=== PATIENT | female | born 1955 | race Caucasian/White ===

== ENCOUNTER → 2016-08-28 | Outpatient (REF) | payer MEDICAID ==
[~2016-08-28] MED LIST: /ADVA50050; /ADVA50050 IN; /ADVA50050 INH; /DULO30CA PO; /ESOM40CA OR; /INSUREG; /INSUREG SC; /MOM400 PO; /RANI15TA PO; /TIOT18INH; /TIOT18INH INH; ABIL10TA PO; ABIL15TA; ABIL15TA OR; ABILIFY15 PO; ACET500C PO; ACET50TA PO; ACET650S3 PR; ACET65TA OR; ACTO45TA; ACTO45TA OR; ACTOS45 PO; ADVAIR200 INHALATION; ALB2.5NEB INH; ALBU1.25 INH; ALBUTEROL INHALATION; ALCOHOL TOP; AMARYL4 PO; ASPEC81 PO; ASPI1TAB PO; ASPI81TA83 OR; ATROV NEBS; AUG875 PO; AUGM500T34 PO; AVANDIA4 PO; BABY81CH; BACL10TA2; BACL10TA2 OR; BACLOFEN10 PO; BACT800T OR; BENADRYL25 PO; BISA10SU PR; BUSPAR15 PO; CAPSAICIN TOP; CELE40TA; CELE40TA OR; CELEXA20 PO; CLOP75TA2 PO; COLA100C2 OR; COLA50CA3 PO; COLACE PO; DEPA500T; DEPA500T PO; DEPAKOT250 PO; DEPAKOT500 PO; DIABETA5 PO; DOXY100C PO; ENEMENE6 PR; ENOX40SY SC; FLEEENE4 PR; FURO40TA2 PO; GLUC1000; GLUC1000 OR; GLUCOSACCS; GLUCOSE TEST; GUAI5EL PO; HABITROL2 TOPICAL; HEPA100SYR IV; HUMA100I SC; IBUP800T OR; INSULANT SC; INSULINSYR SUBQ; IPRA2IN INH; LANCMIS; LANTUS SQ; LIDO5DIS TOP; LIPITOR20 PO; LORCET PO; LORTAB10 PO; LYRI75CA PO; MAALSUS PO; METF1000 PO; METFORM500 PO; MILK2400 PO; MILKSUS OR; MORP10SO OR; MORP15TASA PO; MOTRIN6 PO; MOTRIN800 PO; MS C15TA5 OR; MULTIVIT/MINERALS PO; MULTLIQ7 PO; NICO14DI3; NICO7DIS4; NYAM10003 EXT; NYSTATIN POWDER; NYSTATIN TOP; OXYCON20 PO; PAXIL40 PO; PERC5TAB PO; PERCOCET PO; PLAV75TA2; PLAV75TA2 OR; PRED1TAB32 PO; PROV90AE; PROVENTILI PO; RANI150C OR; SALI0.653; SENN8.6T5 PO; SEROQUE PO; SEROQUEL25 PO; SIMV40TA2 OR; SIMV40TA2 PO; SLF IV; SOMA350 PO; SOMA350T; SYRINS1CC SUBQ; TEFL600I IV; THERAGRAM PO; TOPAMAX100 PO; TOPAMAX200 PO; TOPI100T; TOPI100T OR; TOPI100T PO; TRAZ150T; TRAZ150T OR; TRAZODON10 PO; TRAZODON15 PO; TRICOR160 PO; TRICOR54 PO; TUSSLIQ3 PO; TYLE325T5 PO; VANC50SOL IV; VENTAER INH; VICO5TAB; VICO5TAB OR; VYTORIN40 PO; XANA0.25; XANA0.25 PO; XOPENEX63 NEB; ZANT150T; ZANTAC150 PO; ZOCO40TA; [UNRECOGNIZED DRUG - CODE] IV; [UNRECOGNIZED DRUG - CODE] PO; [UNRECOGNIZED DRUG - OTHER] TOP
[2016-08-28 09:34] LABS: BASO % 0.7 % (0.0-1.0); EOS # 0.6 K/mm3 (0.0-0.50); EOS % 7.9 % (0.0-3.0); LARGE UNSTAINED CELL # 0.2 K/mm3 (0.0-0.4); LARGE UNSTAINED CELL % 2.9 % (0.0-4.0); LYMPH # 2.4 K/mm3 (1.5-4.5); LYMPH % 30.5 % (24.0-44.0); MEAN CORPUSCULAR VOLUME 93.6 fl (80.0-96.0); MONO # 0.4 K/mm3 (0.0-0.8); NEUTROPHILS # 4.2 K/mm3 (1.8-7.7); PLATELET COUNT, AUTOMATED 220 k/mm3 (150-450); RED CELL DISTRIBUTION WIDTH 13.4 % (11.5-14.5); WHITE BLOOD COUNT 7.9 K/mm3 (4.0-10.0)
[2016-08-28 10:22] LABS: ALBUMIN 3.5 GM/DL (3.2-5.2); ALBUMIN/GLOBULIN RATIO 0.83 (1.00-1.93); ALKALINE PHOSPHATASE 115 U/L (45-117); ALT/SGPT 23 U/L (12-78); ANION GAP 12 MEQ/L (8-16); AST/SGOT 19 U/L (15-37); BILIRUBIN,TOTAL 0.5 MG/DL (0.2-1.0); BLOOD UREA NITROGEN 12 MG/DL (7-18); CARBON DIOXIDE LEVEL 26 MEQ/L (21-32); CHLORIDE LEVEL 98 MEQ/L (98-107); CHOLESTEROL LEVEL 146 MG/DL (<200); CREATININE FOR GFR 0.76 MG/DL (0.55-1.02); GLOMERULAR FILTRATION RATE > 60.0 (>45); GLUCOSE, FASTING 331 MG/DL (80-110); POTASSIUM SERUM 4.3 MEQ/L (3.5-5.1); SODIUM LEVEL 136 MEQ/L (136-145); TOTAL PROTEIN 7.7 GM/DL (6.4-8.2); TRIGLYCERIDES LEVEL 154 MG/DL (<150)
== END ==
LOC: SKLAB5 08:39
PROVIDERS: ATTEND Family Medicine
DX: R56.9 Unspecified convulsions (principal); E11.9 Type 2 diabetes mellitus without complications; D64.9 Anemia, unspecified

== ENCOUNTER → 2016-09-19 | Outpatient (REF) | payer MEDICAID | END | disposition home or self-care (01) | LOC: SKLAB5 12:49 | PROVIDERS: ATTEND Family Medicine | DX: L03.116 Cellulitis of left lower limb (principal) ==

== ENCOUNTER → 2016-11-25 | Outpatient (REF) | payer MEDICAID ==
[2016-11-25 08:16] LABS: BASO % 0.5 % (0.0-1.0); EOS # 0.2 K/mm3 (0.0-0.50); EOS % 2.5 % (0.0-3.0); LARGE UNSTAINED CELL # 0.2 K/mm3 (0.0-0.4); LARGE UNSTAINED CELL % 1.9 % (0.0-4.0); LYMPH # 3.5 K/mm3 (1.5-4.5); LYMPH % 38.7 % (24.0-44.0); MEAN CORPUSCULAR HGB CONC 31.4 g/dl (32.0-36.5); MEAN CORPUSCULAR VOLUME 92.4 fl (80.0-96.0); MONO # 0.4 K/mm3 (0.0-0.8); MONO % 4.8 % (0.0-5.0); NEUTROPHILS # 4.4 K/mm3 (1.8-7.7); NEUTROPHILS % 51.6 % (36.0-66.0); PLATELET COUNT, AUTOMATED 204 k/mm3 (150-450); WHITE BLOOD COUNT 8.5 K/mm3 (4.0-10.0)
[2016-11-25 08:43] LABS: ALBUMIN 3.4 GM/DL (3.2-5.2); ALBUMIN/GLOBULIN RATIO 0.83 (1.00-1.93); ALKALINE PHOSPHATASE 124 U/L (45-117); ALT/SGPT 27 U/L (12-78); ANION GAP 8 MEQ/L (8-16); AST/SGOT 14 U/L (15-37); BILIRUBIN,TOTAL 0.3 MG/DL (0.2-1.0); BLOOD UREA NITROGEN 15 MG/DL (7-18); CALCIUM LEVEL 8.7 MG/DL (8.8-10.2); CARBON DIOXIDE LEVEL 28 MEQ/L (21-32); CHLORIDE LEVEL 100 MEQ/L (98-107); CREATININE FOR GFR 0.81 MG/DL (0.55-1.02); GLOMERULAR FILTRATION RATE > 60.0 (>45); GLUCOSE, FASTING 380 MG/DL (80-110); SODIUM LEVEL 136 MEQ/L (136-145); TOTAL PROTEIN 7.5 GM/DL (6.4-8.2)
== END ==
LOC: SKLAB5 09:08
PROVIDERS: ATTEND Family Medicine
DX: L03.115 Cellulitis of right lower limb (principal); M54.42 Lumbago with sciatica, left side

== ENCOUNTER 2017-01-03 17:01 | Emergency (ER) | payer MEDICAID ==
[~2017-01-03] VITALS: Ht 167.6 cm; Wt 90.3 kg
[2017-01-03] MEDS ORDERED: BACL10TA2 PO (17:27)
[2017-01-03 18:40] LABS: MEAN CORPUSCULAR HEMOGLOBIN 28.6 pg (27.0-33.0); MEAN CORPUSCULAR HGB CONC 31.5 g/dl (32.0-36.5); MEAN CORPUSCULAR VOLUME 90.6 fl (80.0-96.0); RED CELL DISTRIBUTION WIDTH 14.2 % (11.5-14.5); WHITE BLOOD COUNT 9.4 K/mm3 (4.0-10.0)
[2017-01-03 19:01] LABS: ANION GAP 7 MEQ/L (8-16); BLOOD UREA NITROGEN 14 MG/DL (7-18); CALCIUM LEVEL 8.7 MG/DL (8.8-10.2); CARBON DIOXIDE LEVEL 28 MEQ/L (21-32); CHLORIDE LEVEL 101 MEQ/L (98-107); GLOMERULAR FILTRATION RATE > 60.0 (>45); GLUCOSE, FASTING 274 MG/DL (80-110); POTASSIUM SERUM 4.2 MEQ/L (3.5-5.1); SODIUM LEVEL 136 MEQ/L (136-145)
[2017-01-03 19:25] VITALS: BP 154/84
[2017-01-03 20:04] LABS: INR 0.87
== END 2017-01-03 19:59 | disposition home or self-care (01) ==
LOC: M ED 17:51
DX: R04.0 Epistaxis (principal); I51.9 Heart disease, unspecified; E11.9 Type 2 diabetes mellitus without complications; I10 Essential (primary) hypertension; Z79.82 Long term (current) use of aspirin; Z79.4 Long term (current) use of insulin; Z79.891 Long term (current) use of opiate analgesic; Z79.899 Other long term (current) drug therapy; Z88.1 Allergy status to other antibiotic agents

== ENCOUNTER → 2017-02-26 | Outpatient (REF) | payer MEDICAID ==
[~2017-02-26] MED LIST changes: +BACL10TA2 PO
[2017-02-26 09:34] LABS: BASO % 0.6 % (0.0-1.0); EOS # 0.2 K/mm3 (0.0-0.50); EOS % 2.9 % (0.0-3.0); LARGE UNSTAINED CELL # 0.2 K/mm3 (0.0-0.4); LARGE UNSTAINED CELL % 2.2 % (0.0-4.0); LYMPH # 2.6 K/mm3 (1.5-4.5); LYMPH % 31.6 % (24.0-44.0); MEAN CORPUSCULAR HEMOGLOBIN 29.7 pg (27.0-33.0); MEAN CORPUSCULAR HGB CONC 31.8 g/dl (32.0-36.5); MEAN CORPUSCULAR VOLUME 93.2 fl (80.0-96.0); MONO # 0.4 K/mm3 (0.0-0.8); MONO % 5.1 % (0.0-5.0); NEUTROPHILS # 4.7 K/mm3 (1.8-7.7); NEUTROPHILS % 57.6 % (36.0-66.0); PLATELET COUNT, AUTOMATED 202 k/mm3 (150-450); RED CELL DISTRIBUTION WIDTH 14.2 % (11.5-14.5); WHITE BLOOD COUNT 8.1 K/mm3 (4.0-10.0)
[2017-02-26 10:43] LABS: ALBUMIN 3.4 GM/DL (3.2-5.2); ALBUMIN/GLOBULIN RATIO 0.83 (1.00-1.93); ALKALINE PHOSPHATASE 114 U/L (45-117); ALT/SGPT 30 U/L (12-78); ANION GAP 10 MEQ/L (8-16); AST/SGOT 18 U/L (15-37); BILIRUBIN,TOTAL 0.3 MG/DL (0.2-1.0); BLOOD UREA NITROGEN 15 MG/DL (7-18); CALCIUM LEVEL 8.8 MG/DL (8.8-10.2); CARBON DIOXIDE LEVEL 26 MEQ/L (21-32); CHLORIDE LEVEL 98 MEQ/L (98-107); CHOLESTEROL LEVEL 146 MG/DL (<200); CREATININE FOR GFR 0.79 MG/DL (0.55-1.02); GLOMERULAR FILTRATION RATE > 60.0 (>45); GLUCOSE, FASTING 354 MG/DL (80-110); POTASSIUM SERUM 4.2 MEQ/L (3.5-5.1); SODIUM LEVEL 134 MEQ/L (136-145); TOTAL PROTEIN 7.5 GM/DL (6.4-8.2); TRIGLYCERIDES LEVEL 221 MG/DL (<150)
== END ==
LOC: SKLAB5 08:18
PROVIDERS: ATTEND Family Medicine
DX: E78.5 Hyperlipidemia, unspecified (principal); E11.9 Type 2 diabetes mellitus without complications; R56.9 Unspecified convulsions

== ENCOUNTER → 2017-03-19 | Outpatient (REF) | payer MEDICAID ==
[2017-03-19 13:32] LABS: BASO % 0.5 % (0.0-1.0); EOS # 0.2 K/mm3 (0.0-0.50); EOS % 2.1 % (0.0-3.0); LARGE UNSTAINED CELL # 0.2 K/mm3 (0.0-0.4); LARGE UNSTAINED CELL % 1.9 % (0.0-4.0); LYMPH # 2.4 K/mm3 (1.5-4.5); LYMPH % 26.3 % (24.0-44.0); MEAN CORPUSCULAR HEMOGLOBIN 29.3 pg (27.0-33.0); MEAN CORPUSCULAR VOLUME 91.4 fl (80.0-96.0); MONO # 0.4 K/mm3 (0.0-0.8); MONO % 4.7 % (0.0-5.0); NEUTROPHILS # 5.9 K/mm3 (1.8-7.7); NEUTROPHILS % 64.4 % (36.0-66.0); PLATELET COUNT, AUTOMATED 198 k/mm3 (150-450); RED CELL DISTRIBUTION WIDTH 14.1 % (11.5-14.5); WHITE BLOOD COUNT 9.2 K/mm3 (4.0-10.0)
== END ==
LOC: SKLAB5 12:46
PROVIDERS: ATTEND Family Medicine
DX: D64.9 Anemia, unspecified (principal)

== ENCOUNTER → 2017-03-24 | Outpatient (REF) | payer MEDICAID ==
[2017-03-24 19:42] LABS: BASO % 0.5 % (0.0-1.0); EOS # 0.2 K/mm3 (0.0-0.50); EOS % 2.6 % (0.0-3.0); LARGE UNSTAINED CELL # 0.2 K/mm3 (0.0-0.4); LARGE UNSTAINED CELL % 2.5 % (0.0-4.0); LYMPH # 3.1 K/mm3 (1.5-4.5); LYMPH % 34.7 % (24.0-44.0); MEAN CORPUSCULAR HEMOGLOBIN 29.4 pg (27.0-33.0); MEAN CORPUSCULAR HGB CONC 32.3 g/dl (32.0-36.5); MEAN CORPUSCULAR VOLUME 90.9 fl (80.0-96.0); MONO # 0.5 K/mm3 (0.0-0.8); NEUTROPHILS # 4.9 K/mm3 (1.8-7.7); NEUTROPHILS % 54.6 % (36.0-66.0); PLATELET COUNT, AUTOMATED 194 k/mm3 (150-450); RED CELL DISTRIBUTION WIDTH 14.2 % (11.5-14.5)
== END ==
LOC: SKLAB5 18:44
PROVIDERS: ATTEND Family Medicine
DX: R10.9 Unspecified abdominal pain (principal)

== ENCOUNTER → 2017-03-24 | Outpatient (CLI) | payer MEDICAID ==
--- NOTE | 2017-03-24 12:13 | REPMRS ---
Patient History The patient states she has not had a clinical breast exam in over a year. No known family history of cancer. Digital Mammo Screening Bilat: March 24, 2017 - Exam #: [id number] Bilateral CC and MLO view(s) were taken. Technologist: Steff Parry, Technologist No prior studies available for comparison. FINDINGS: There are scattered fibroglandular densities. There is a mild amount of residual fibroglandular tissue which is fairly symmetric. There is no dominant mass, architectural distortion, or clustered microcalcification suggestive of malignancy. Minor tissue asymmetry in right breast as benign finding. Priors from 2001 at NR no longer available. ASSESSMENT: BI-RADS/ACR category 2 mammogram. Benign finding(s). Recommendation Routine screening mammogram in 1 year (for women over age 40). This mammogram was interpreted with the aid of an FDA-approved computer-aided dectection system. A. Negative x-ray reports should not delay biopsy if a dominant or clinically suspicious mass is present. B. Four to eight percent of cancers are not identified by mammography. C. Adenosis and dense breast may obscure an underlying neoplasm. Electronically Signed By: Edi Sprague MD 03/24/17 0085
== END ==
LOC: M RAD 10:55
PROVIDERS: ATTEND Family Medicine
DX: Z12.31 Encounter for screening mammogram for malignant neoplasm of breast (principal)

== ENCOUNTER → 2017-03-25 | Outpatient (REF) | payer MEDICAID ==
--- NOTE | 2017-03-25 10:28 | REP ---
KUB, ONE VIEW: HISTORY: Abdominal pain. COMPARISON: 01/29/2011. A small amount of air is present in the small and large intestine. There are no fluid levels or dilated loops of intestine. There is no pneumoperitoneum. Degenerative change is present in the lumbar spine. IMPRESSION: Nonspecific bowel gas pattern. Signed by Giorgio Haley MD 03/25/2017 10:34 A
== END ==
LOC: SKLAB5 08:00
PROVIDERS: ATTEND Family Medicine
DX: R10.9 Unspecified abdominal pain (principal)

== ENCOUNTER → 2017-04-07 | Outpatient (REF) | payer MEDICAID | LOC: SKLAB5 01:57 | PROVIDERS: ATTEND Family Medicine | DX: R31.9 Hematuria, unspecified (principal) ==

== ENCOUNTER → 2017-04-26 | Outpatient (REF) | payer MEDICAID | LOC: SKLAB5 01:05 | PROVIDERS: ATTEND Family Medicine | DX: E11.9 Type 2 diabetes mellitus without complications (principal); I10 Essential (primary) hypertension ==

== ENCOUNTER → 2017-05-04 | Outpatient (REF) | payer MEDICAID ==
[2017-05-04 14:18] LABS: MEAN CORPUSCULAR HEMOGLOBIN 29.5 pg (27.0-33.0); MEAN CORPUSCULAR HGB CONC 32.3 g/dl (32.0-36.5); MEAN CORPUSCULAR VOLUME 91.3 fl (80.0-96.0); RED CELL DISTRIBUTION WIDTH 14.1 % (11.5-14.5); WHITE BLOOD COUNT 8.8 K/mm3 (4.0-10.0)
== END ==
LOC: SKLAB5 12:06
PROVIDERS: ATTEND Family Medicine
DX: R79.89 Other specified abnormal findings of blood chemistry (principal)

== ENCOUNTER → 2017-05-04 | Outpatient (CLI) | payer MEDICAID ==
--- NOTE | 2017-05-04 14:40 | REP ---
RIGHT LOWER EXTREMITY DOPPLER VENOUS ULTRASOUND: 05/04/2017. Comparison: 09/28/2014, 11/26/2013. Technique: The deep venous system of the right lower extremity is evaluated with mcclain scale imaging, compression ultrasound, color imaging and duplex Doppler interrogation. Examination from the groin through the popliteal fossa into the proximal calf. Exam is limited due to significant lower extremity swelling. The distal SFV is difficult to visualize Findings: There is full compressibility from the common femoral vein in the inguinal region through the popliteal vein. Color imaging confirms patency throughout the course of the deep venous system. There is respiratory variation and augmented flow at all levels, although there is difficulty visualizing the distal femoral vein above the popliteal due to swelling. Impression: 1. No Doppler venous ultrasound evidence of DVT in the right lower extremity, exam limited for reasons stated above. No gross evidence of DVT. Signed by Edi Sprague MD 05/04/2017 02:32 P
== END ==
LOC: M RAD 13:31
PROVIDERS: ATTEND Nurse Practitioner Family
DX: M79.661 Pain in right lower leg (principal); M79.89 Other specified soft tissue disorders

== ENCOUNTER → 2017-05-28 | Outpatient (REF) | payer MEDICAID | LOC: SKLAB5 08:43 | PROVIDERS: ATTEND Family Medicine | DX: E11.9 Type 2 diabetes mellitus without complications (principal) ==

== ENCOUNTER → 2017-07-17 | Outpatient (REF) | payer MEDICAID ==
[2017-07-17 07:47] LABS: ANION GAP 9 MEQ/L (8-16); BLOOD UREA NITROGEN 14 MG/DL (7-18); CALCIUM LEVEL 8.9 MG/DL (8.8-10.2); CARBON DIOXIDE LEVEL 26 MEQ/L (21-32); CHLORIDE LEVEL 102 MEQ/L (98-107); CREATININE FOR GFR 0.72 MG/DL (0.55-1.02); GLOMERULAR FILTRATION RATE > 60.0 (>45); GLUCOSE, FASTING 250 MG/DL (80-110); POTASSIUM SERUM 4.3 MEQ/L (3.5-5.1); SODIUM LEVEL 137 MEQ/L (136-145)
== END ==
LOC: SKLAB5 07:58
PROVIDERS: ATTEND Family Medicine
DX: I73.9 Peripheral vascular disease, unspecified (principal); R60.9 Edema, unspecified

== ENCOUNTER → 2017-07-24 | Outpatient (REF) | payer MEDICAID, MEDICARE ==
[~2017-07-24] MED LIST changes: +LASI20TA PO; +METF500T13 PO; +PREG50CA PO; +VITA100T2 PO
== END ==
LOC: SKLAB5 01:29
PROVIDERS: ATTEND Family Medicine
DX: E11.9 Type 2 diabetes mellitus without complications (principal)

== ENCOUNTER 2017-07-28 13:52 | Emergency (ER) | payer MEDICAID ==
[~2017-07-28] VITALS: Ht 162.6 cm; Wt 89.5 kg
[~2017-07-28 13:52] MED LIST changes: -LASI20TA PO; -METF500T13 PO; -PREG50CA PO; -VITA100T2 PO
[2017-07-28] MEDS ORDERED: LASI20TA PO (14:19)
[2017-07-28] MEDS ORDERED: VITA100T2 PO (14:19)
[2017-07-28] MEDS ORDERED: PREG50CA PO (14:19)
[2017-07-28] MEDS ORDERED: METF500T13 PO (14:19)
[2017-07-28] MEDS ORDERED: PHENYLEPHRINE 0.5% NASAL SPRAY 15 ML ONE (16:15)
[2017-07-28 16:39] LABS: BASO % 0.4 % (0.0-1.0); EOS # 0.2 10^3/uL (0.0-0.50); IMMATURE GRANULOCYTE % 0.4 % (0-0); LYMPH # 3.3 10^3/uL (1.5-4.5); LYMPH % 31.4 % (24.0-44.0); MEAN CORPUSCULAR HEMOGLOBIN 28.6 pg (27.0-33.0); MEAN CORPUSCULAR HGB CONC 32.1 g/dl (32.0-36.5); MEAN CORPUSCULAR VOLUME 89.3 fl (80.0-96.0); MONO # 0.7 10^3/uL (0.0-0.8); NEUTROPHILS # 6.1 10^3/uL (1.8-7.7); NEUTROPHILS % 58.8 % (36.0-66.0); PLATELET COUNT, AUTOMATED 199 10^3/uL (150-450); RED CELL DISTRIBUTION WIDTH 14.4 % (11.5-14.5); WHITE BLOOD COUNT 10.4 10^3/uL (4.0-10.0)
[2017-07-28 17:02] LABS: INR 0.92
[2017-07-28 17:06] LABS: ANION GAP 7 MEQ/L (8-16); BLOOD UREA NITROGEN 18 MG/DL (7-18); CALCIUM LEVEL 9.1 MG/DL (8.8-10.2); CARBON DIOXIDE LEVEL 30 MEQ/L (21-32); CHLORIDE LEVEL 102 MEQ/L (98-107); CREATININE FOR GFR 0.71 MG/DL (0.55-1.02); GLOMERULAR FILTRATION RATE > 60.0 (>45); GLUCOSE, FASTING 126 MG/DL (80-110); POTASSIUM SERUM 4.1 MEQ/L (3.5-5.1); SODIUM LEVEL 139 MEQ/L (136-145)
[2017-07-28 17:30] VITALS: BP 131/70
== END 2017-07-28 18:11 | disposition home or self-care (01) ==
LOC: M ED 13:52
DX: R04.0 Epistaxis (principal); Z95.1 Presence of aortocoronary bypass graft; R56.9 Unspecified convulsions; I25.10 Atherosclerotic heart disease of native coronary artery without angina pectoris; I25.2 Old myocardial infarction; I10 Essential (primary) hypertension; J45.909 Unspecified asthma, uncomplicated; Z87.442 Personal history of urinary calculi; E11.9 Type 2 diabetes mellitus without complications; F31.9 Bipolar disorder, unspecified; M19.90 Unspecified osteoarthritis, unspecified site; G81.91 Hemiplegia, unspecified affecting right dominant side; Z79.82 Long term (current) use of aspirin; Z79.4 Long term (current) use of insulin; Z79.899 Other long term (current) drug therapy; Z88.8 Allergy status to other drugs, medicaments and biological substances

== ENCOUNTER → 2017-08-27 | Outpatient (REF) | payer MEDICAID ==
[2017-08-27 09:07] LABS: BASO # 0.1 10^3/uL (0.0-0.2); BASO % 0.6 % (0.0-1.0); EOS # 0.3 10^3/uL (0.0-0.50); EOS % 3.3 % (0.0-3.0); HEMATOCRIT 40.5 % (36.0-47.0); HEMOGLOBIN 12.8 g/dl (12.0-16.0); IMMATURE GRANULOCYTE # 0.1 10^3/uL (0-0); IMMATURE GRANULOCYTE % 0.7 % (0-0); LYMPH # 3.9 10^3/uL (1.5-4.5); LYMPH % 38.6 % (24.0-44.0); MEAN CORPUSCULAR HEMOGLOBIN 27.7 pg (27.0-33.0); MEAN CORPUSCULAR HGB CONC 31.6 g/dl (32.0-36.5); MEAN CORPUSCULAR VOLUME 87.7 fl (80.0-96.0); MONO # 0.5 10^3/uL (0.0-0.8); NEUTROPHILS # 5.2 10^3/uL (1.8-7.7); NEUTROPHILS % 51.8 % (36.0-66.0); PLATELET COUNT, AUTOMATED 260 10^3/uL (150-450); RED BLOOD COUNT 4.62 10^6/uL (4.00-5.40); RED CELL DISTRIBUTION WIDTH 14.4 % (11.5-14.5); WHITE BLOOD COUNT 10.1 10^3/uL (4.0-10.0)
[2017-08-27 09:29] LABS: ALBUMIN 3.5 GM/DL (3.2-5.2); ALKALINE PHOSPHATASE 91 U/L (45-117); ALT/SGPT 25 U/L (12-78); ANION GAP 10 MEQ/L (8-16); AST/SGOT 26 U/L (7-37); BILIRUBIN,TOTAL 0.2 MG/DL (0.2-1.0); BLOOD UREA NITROGEN 15 MG/DL (7-18); CALCIUM LEVEL 9.1 MG/DL (8.8-10.2); CARBON DIOXIDE LEVEL 26 MEQ/L (21-32); CHLORIDE LEVEL 102 MEQ/L (98-107); CHOLESTEROL LEVEL 123 MG/DL (<200); CHOLESTEROL RISK RATIO 2.617 (<5); CREATININE FOR GFR 0.68 MG/DL (0.55-1.02); GLOMERULAR FILTRATION RATE > 60.0 (>45); GLUCOSE, FASTING 226 MG/DL (80-110); HDL CHOLESTEROL 47 MG/DL (>40); LDL CHOLESTEROL 50.2 MG/DL (<100); NON-HDL-C 76 MG/DL; POTASSIUM SERUM 4.3 MEQ/L (3.5-5.1); SODIUM LEVEL 138 MEQ/L (136-145); TOTAL PROTEIN 7.9 GM/DL (6.4-8.2); TRIGLYCERIDES LEVEL 129 MG/DL (<150)
[2017-08-27 10:49] LABS: ESTIMATED AVERAGE GLUCOSE 177 MG/DL (60-110); HEMOGLOBIN A1c 7.8 %
== END ==
LOC: SKLAB5 07:47
DX: J44.9 Chronic obstructive pulmonary disease, unspecified (principal); E11.9 Type 2 diabetes mellitus without complications; R56.9 Unspecified convulsions
CPT/HCPCS: 80053

== ENCOUNTER → 2017-11-26 | Outpatient (REF) | payer MEDICAID, MEDICARE ==
[2017-11-26 09:32] LABS: VALPROIC ACID (DEPAKOTE) 85.3 UG/ML (50.0-100.0)
[2017-11-26 10:50] LABS: ESTIMATED AVERAGE GLUCOSE 180 MG/DL (60-110); HEMOGLOBIN A1c 7.9 %
== END ==
LOC: SKLAB5 07:28
DX: R56.9 Unspecified convulsions (principal); E11.9 Type 2 diabetes mellitus without complications; I25.10 Atherosclerotic heart disease of native coronary artery without angina pectoris
CPT/HCPCS: 80164

== ENCOUNTER → 2017-12-14 | Outpatient (REF) | payer MEDICAID, MEDICARE | LOC: SKLAB5 08:24 | DX: R19.7 Diarrhea, unspecified (principal) | CPT/HCPCS: 87507 ==

== ENCOUNTER → 2018-02-16 | Outpatient (REF) | payer MEDICAID ==
[2018-02-16 08:08] LABS: BASO % 0.3 % (0.0-1.0); HEMATOCRIT 42.1 % (36.0-47.0); HEMOGLOBIN 13.2 g/dl (12.0-15.5); IMMATURE GRANULOCYTE % 0.6 % (0-3.0); LYMPH # 2.5 10^3/uL (1.5-4.5); LYMPH % 16.2 % (24.0-44.0); MEAN CORPUSCULAR HEMOGLOBIN 27.3 pg (27.0-33.0); MEAN CORPUSCULAR HGB CONC 31.4 g/dl (32.0-36.5); MONO # 0.7 10^3/uL (0.0-0.8); MONO % 4.5 % (0.0-5.0); NEUTROPHILS # 12.1 10^3/uL (1.8-7.7); NEUTROPHILS % 78.4 % (36.0-66.0); PLATELET COUNT, AUTOMATED 238 10^3/uL (150-450); RED BLOOD COUNT 4.84 10^6/uL (4.00-5.40); RED CELL DISTRIBUTION WIDTH 15.6 % (11.5-14.5); WHITE BLOOD COUNT 15.5 10^3/uL (4.0-10.0)
[2018-02-16 08:32] LABS: URIC ACID 5.6 MG/DL (2.6-6.0)
[2018-02-16 09:15] LABS: ERYTHROCYTE SEDIMENTATION RATE 14 mm/hr (0-30)
== END ==
LOC: SKLAB5
DX: M25.431 Effusion, right wrist (principal)
CPT/HCPCS: 84550

== ENCOUNTER 2018-02-17 11:16 | Inpatient (IN) | payer MEDICAID, MEDICARE ==
[2018-02-16] MEDS: LIDOCAINE 1% MDV 20ML VIAL XX (22:00)
[2018-02-17 12:14] LABS: BASO % 0.2 % (0.0-1.0); EOS # 0.1 10^3/uL (0.0-0.50); EOS % 0.4 % (0.0-3.0); HEMATOCRIT 42.9 % (36.0-47.0); HEMOGLOBIN 13.7 g/dl (12.0-15.5); IMMATURE GRANULOCYTE % 0.4 % (0-3.0); LYMPH # 2.7 10^3/uL (1.5-4.5); LYMPH % 14.7 % (24.0-44.0); MEAN CORPUSCULAR HGB CONC 31.9 g/dl (32.0-36.5); MEAN CORPUSCULAR VOLUME 84.6 fl (80.0-96.0); MONO # 1.2 10^3/uL (0.0-0.8); MONO % 6.7 % (0.0-5.0); NEUTROPHILS # 14.1 10^3/uL (1.8-7.7); NEUTROPHILS % 77.6 % (36.0-66.0); PLATELET COUNT, AUTOMATED 219 10^3/uL (150-450); RED BLOOD COUNT 5.07 10^6/uL (4.00-5.40); RED CELL DISTRIBUTION WIDTH 15.9 % (11.5-14.5); WHITE BLOOD COUNT 18.2 10^3/uL (4.0-10.0)
[2018-02-17 12:32] LABS: KETONE, URINE AUTO RFX TRACE mg/dL (NEGATIVE); LEUKOCYTE ESTERASE UR AUTO RFX NEGATIVE (NEGATIVE); NITRITE, URINE AUTO RFX NEGATIVE (NEGATIVE); RBC, URINE AUTO RFX 2 /HPF (0-3); SPECIFIC GRAVITY UR AUTO RFX 1.023 (1.002-1.035); SQUAM EPITHELIAL CELL UR AURFX 0 /HPF (0-6); WBC, URINE AUTO RFX 3 /HPF (0-3)
[2018-02-17 12:35] LABS: ERYTHROCYTE SEDIMENTATION RATE 34 mm/hr (0-30)
[2018-02-17 12:39] LABS: ALBUMIN 3.2 GM/DL (3.2-5.2); ALBUMIN/GLOBULIN RATIO 0.62 (1.00-1.93); ALKALINE PHOSPHATASE 82 U/L (45-117); ALT/SGPT 20 U/L (12-78); ANION GAP 8 MEQ/L (8-16); AST/SGOT 12 U/L (7-37); BILIRUBIN,TOTAL 0.5 MG/DL (0.2-1.0); BLOOD UREA NITROGEN 21 MG/DL (7-18); C REACTIVE PROTEIN QUANTITATIV 9.92 MG/DL (0.00-0.30); CALCIUM LEVEL 8.9 MG/DL (8.8-10.2); CARBON DIOXIDE LEVEL 29 MEQ/L (21-32); CHLORIDE LEVEL 99 MEQ/L (98-107); CREATININE FOR GFR 0.82 MG/DL (0.55-1.30); GLOMERULAR FILTRATION RATE > 60.0 (>45); GLUCOSE, FASTING 175 MG/DL (70-100); POTASSIUM SERUM 3.8 MEQ/L (3.5-5.1); SODIUM LEVEL 136 MEQ/L (136-145); TOTAL PROTEIN 8.4 GM/DL (6.4-8.2)
[2018-02-17 12:45] LABS: LACTIC ACID SEPSIS PROTOCOL 2.6 MMOL/L (0.4-2.0)
[2018-02-17] MEDS: ONDANSETRON 4MG/2ML VIAL (J2405) IV (12:47)
[2018-02-17] MEDS: NS 1,000 ML IV ×2 (12:47→18:25)
[2018-02-17] MEDS: HYDROmorphone HCL 1 MG/ML SYRINGE (J1170) IV ×2 (12:48→14:56)
[2018-02-17] MEDS: CEFTAROLINE FOSAMIL 600 MG in D5W MINI-BAG PLUS 50 ML IV (13:57)
[2018-02-17 14:41] LABS: LACTIC ACID SEPSIS PROTOCOL 1.8 MMOL/L (0.4-2.0)
[2018-02-17] MEDS ORDERED: ONDANSETRON 4MG/2ML VIAL (J2405) IV (17:30)
[2018-02-17] MEDS ORDERED: BISACODYL 5 MG TAB PO (17:30)
[2018-02-17] MEDS ORDERED: CEPACOL LOZENGE MT (18:00)
[2018-02-17] MEDS ORDERED: MOM 30ML SUSPENSION UDC PO (18:00)
[2018-02-17] MEDS ORDERED: IPRATROPIUM 0.5MG/ALBUTEROL 2.5MG INH SOL UD 3ML (DUONEB)(J7620) NEB (18:00)
[2018-02-17] MEDS ORDERED: CALCIUM CARBONATE 500 MG CHEW U/D PO (18:00)
[2018-02-17] MEDS ORDERED: OXYMETAZOLINE NASAL SPRAY (AFRIN) (18:00)
[2018-02-17] MEDS ORDERED: ISOVUE-370 76% 100ML VIAL (Q9967) As Ordered (18:10)
[2018-02-17] MEDS ORDERED: GLUCOSE 4 GM CHEW TABLET PO (18:15)
[2018-02-17] MEDS ORDERED: GLUCAGON FOR INJ 1 MG VIAL (J1610) SC (18:15)
[2018-02-17] MEDS ORDERED: DEXTROSE 50% 50 ML SYRINGE IV (18:15)
[2018-02-17] MEDS: MORPHINE 4 MG/ML 1ML VIAL/SYRINGE (J2270) IV ×2 (18:25→20:24)
[2018-02-17] MEDS: VANCOMYCIN HCL 1,000 MG, VIAL MATE ADAPTER 1 EACH in D5W 250 ML IV (18:51)
[2018-02-17] MEDS: LEVEMIR (INSULIN DETEMIR) 1 UNITS/0.01ML SC (19:39)
[2018-02-17] MEDS ORDERED: AMPICILLIN SOD/SULBACTAM SOD 3 GM in D5W MINI-BAG PLUS 100 ML IV (20:00)
[2018-02-17 21:00] LABS: BEDSIDE GLUCOSE 199 MG/DL (80-115)
[2018-02-17] MEDS: POLYSPORIN TOPICAL OINTMENT 15GM TOP (21:00)
[2018-02-17] MEDS: HumaLOG INSULIN (NovoLOG) PER UNIT SC (21:00)
[2018-02-17] MEDS: DIVALPROEX 500 MG TAB PO (23:40)
[2018-02-17] MEDS: BACLOFEN 10 MG TAB PO (23:40)
[2018-02-17] MEDS: SENOKOT S TAB PO (23:40)
[2018-02-17] MEDS: THIAMINE 100 MG TAB PO (23:41)
[2018-02-17] MEDS: AMPICILLIN SOD/SULBACTAM SOD 3 GM in D5W MINI-BAG PLUS 100 ML IV (23:41)
[2018-02-18] MEDS: MORPHINE 15 MG SA TAB PO ×3 (00:24→23:52)
[2018-02-18] MEDS: POLYSPORIN TOPICAL OINTMENT 15GM TOP ×7 (01:15→22:42)
[2018-02-18] MEDS: VANCOMYCIN HCL 1,000 MG, VIAL MATE ADAPTER 1 EACH in D5W 250 ML IV ×2 (01:15→12:56)
[2018-02-18 03:09] LABS: BEDSIDE GLUCOSE 233 MG/DL (80-115)
[2018-02-18] MEDS: AMPICILLIN SOD/SULBACTAM SOD 3 GM in D5W MINI-BAG PLUS 100 ML IV ×4 (03:36→22:42)
[2018-02-18] MEDS: PREGABALIN 50 MG CAP (LYRICA) PO ×2 (05:46→16:59)
[2018-02-18 06:04] LABS: BASO % 0.2 % (0.0-1.0); EOS # 0.3 10^3/uL (0.0-0.50); EOS % 1.7 % (0.0-3.0); HEMOGLOBIN 11.9 g/dl (12.0-15.5); IMMATURE GRANULOCYTE % 0.9 % (0-3.0); LYMPH # 0.9 10^3/uL (1.5-4.5); LYMPH % 5.8 % (24.0-44.0); MEAN CORPUSCULAR HGB CONC 31.3 g/dl (32.0-36.5); MEAN CORPUSCULAR VOLUME 86.4 fl (80.0-96.0); MONO # 0.9 10^3/uL (0.0-0.8); MONO % 5.3 % (0.0-5.0); NEUTROPHILS # 14.1 10^3/uL (1.8-7.7); NEUTROPHILS % 86.1 % (36.0-66.0); PLATELET COUNT, AUTOMATED 182 10^3/uL (150-450); RED CELL DISTRIBUTION WIDTH 15.9 % (11.5-14.5); WHITE BLOOD COUNT 16.3 10^3/uL (4.0-10.0)
[2018-02-18 06:29] LABS: ANION GAP 8 MEQ/L (8-16); BLOOD UREA NITROGEN 18 MG/DL (7-18); CALCIUM LEVEL 7.8 MG/DL (8.8-10.2); CARBON DIOXIDE LEVEL 28 MEQ/L (21-32); CHLORIDE LEVEL 102 MEQ/L (98-107); CREATININE FOR GFR 0.79 MG/DL (0.55-1.30); GLOMERULAR FILTRATION RATE > 60.0 (>45); GLUCOSE, FASTING 181 MG/DL (70-100); POTASSIUM SERUM 3.6 MEQ/L (3.5-5.1); SODIUM LEVEL 138 MEQ/L (136-145)
[2018-02-18] MEDS: NS 1,000 ML IV (06:42)
[2018-02-18] MEDS: ADVAIR HFA 115/21MCG INHALER INH ×2 (07:34→16:00)
[2018-02-18] MEDS: FAMOTIDINE 20 MG TAB PO (09:11)
[2018-02-18] MEDS: ASPIRIN 81 MG CHEW TABLET PO (09:11)
[2018-02-18] MEDS: THIAMINE 100 MG TAB PO ×2 (09:11→22:42)
[2018-02-18] MEDS: DULoxetine 30 MG CAP (CYMBALTA) PO (09:11)
[2018-02-18] MEDS: ENOXAPARIN 40 MG/0.4 ML SYRINGE (J1650) SC (09:12)
[2018-02-18] MEDS: ARIPiprazole 10 MG TAB PO (09:12)
[2018-02-18] MEDS: BACLOFEN 10 MG TAB PO ×2 (09:12→22:41)
[2018-02-18] MEDS: DIVALPROEX 500 MG TAB PO ×2 (09:12→22:41)
[2018-02-18] MEDS: CLOPIDOGREL 75 MG TAB PO (09:12)
[2018-02-18] MEDS: SENOKOT S TAB PO ×2 (09:12→22:42)
[2018-02-18] MEDS: HumaLOG INSULIN (NovoLOG) PER UNIT SC ×4 (09:13→22:29)
[2018-02-18] MEDS: LEVEMIR (INSULIN DETEMIR) 1 UNITS/0.01ML SC ×2 (09:13→17:00)
[2018-02-18 11:34] LABS: BEDSIDE GLUCOSE 252 MG/DL (80-115)
[2018-02-18] MEDS: ACETAMINOPHEN TAB 650MG DOSE (2X325MG) PO (11:36)
[2018-02-18] MEDS: FUROSEMIDE 20 MG TAB PO (12:56)
[2018-02-18 16:52] LABS: BEDSIDE GLUCOSE 182 MG/DL (80-115)
[2018-02-18 19:59] LABS: BEDSIDE GLUCOSE 199 MG/DL (80-115)
[2018-02-19] MEDS: VANCOMYCIN HCL 1,000 MG, VIAL MATE ADAPTER 1 EACH in D5W 250 ML IV ×2 (01:29→12:49)
[2018-02-19] MEDS: POLYSPORIN TOPICAL OINTMENT 15GM TOP ×6 (01:30→22:43)
[2018-02-19] MEDS: AMPICILLIN SOD/SULBACTAM SOD 3 GM in D5W MINI-BAG PLUS 100 ML IV ×4 (05:45→22:42)
[2018-02-19] MEDS: PREGABALIN 50 MG CAP (LYRICA) PO ×2 (05:45→15:31)
[2018-02-19 05:49] LABS: BASO % 0.1 % (0.0-1.0); EOS # 0.6 10^3/uL (0.0-0.50); EOS % 4.2 % (0.0-3.0); HEMATOCRIT 36.2 % (36.0-47.0); HEMOGLOBIN 11.5 g/dl (12.0-15.5); IMMATURE GRANULOCYTE % 0.4 % (0-3.0); LYMPH # 1.3 10^3/uL (1.5-4.5); MEAN CORPUSCULAR HEMOGLOBIN 27.5 pg (27.0-33.0); MEAN CORPUSCULAR HGB CONC 31.8 g/dl (32.0-36.5); MEAN CORPUSCULAR VOLUME 86.6 fl (80.0-96.0); MONO # 0.9 10^3/uL (0.0-0.8); MONO % 6.5 % (0.0-5.0); NEUTROPHILS # 10.6 10^3/uL (1.8-7.7); NEUTROPHILS % 78.8 % (36.0-66.0); PLATELET COUNT, AUTOMATED 170 10^3/uL (150-450); RED BLOOD COUNT 4.18 10^6/uL (4.00-5.40); RED CELL DISTRIBUTION WIDTH 15.8 % (11.5-14.5); WHITE BLOOD COUNT 13.5 10^3/uL (4.0-10.0)
[2018-02-19 06:05] LABS: ANION GAP 7 MEQ/L (8-16); BLOOD UREA NITROGEN 23 MG/DL (7-18); CALCIUM LEVEL 7.9 MG/DL (8.8-10.2); CARBON DIOXIDE LEVEL 29 MEQ/L (21-32); CHLORIDE LEVEL 101 MEQ/L (98-107); CREATININE FOR GFR 0.75 MG/DL (0.55-1.30); GLOMERULAR FILTRATION RATE > 60.0 (>45); GLUCOSE, FASTING 134 MG/DL (70-100); POTASSIUM SERUM 3.4 MEQ/L (3.5-5.1); SODIUM LEVEL 137 MEQ/L (136-145)
[2018-02-19 06:20] LABS: ERYTHROCYTE SEDIMENTATION RATE 65 mm/hr (0-30)
[2018-02-19] MEDS: LEVEMIR (INSULIN DETEMIR) 1 UNITS/0.01ML SC ×2 (07:30→17:00)
[2018-02-19] MEDS: HumaLOG INSULIN (NovoLOG) PER UNIT SC ×4 (07:30→21:00)
[2018-02-19] MEDS: ADVAIR HFA 115/21MCG INHALER INH ×2 (07:57→16:00)
[2018-02-19] MEDS: ASPIRIN 81 MG CHEW TABLET PO (09:00)
[2018-02-19] MEDS: ENOXAPARIN 40 MG/0.4 ML SYRINGE (J1650) SC (09:00)
[2018-02-19] MEDS: CLOPIDOGREL 75 MG TAB PO (09:00)
[2018-02-19] MEDS: DULoxetine 30 MG CAP (CYMBALTA) PO (10:16)
[2018-02-19] MEDS: FAMOTIDINE 20 MG TAB PO (10:16)
[2018-02-19] MEDS: BACLOFEN 10 MG TAB PO ×2 (10:17→22:42)
[2018-02-19] MEDS: ARIPiprazole 10 MG TAB PO (10:17)
[2018-02-19] MEDS: THIAMINE 100 MG TAB PO ×2 (10:17→22:42)
[2018-02-19] MEDS: DIVALPROEX 500 MG TAB PO ×2 (10:17→22:42)
[2018-02-19] MEDS: SENOKOT S TAB PO ×2 (10:17→22:42)
[2018-02-19 11:22] LABS: BEDSIDE GLUCOSE 152 MG/DL (80-115)
[2018-02-19] MEDS: MORPHINE 15 MG SA TAB PO (12:51)
[2018-02-19] MEDS: FUROSEMIDE 20 MG TAB PO (14:28)
[2018-02-19 16:24] LABS: BEDSIDE GLUCOSE 209 MG/DL (80-115)
[2018-02-19] MEDS: MORPHINE 4 MG/ML 1ML VIAL/SYRINGE (J2270) IV (17:56)
[2018-02-19] MEDS: LORazepam 0.5 MG TAB PO ×2 (20:41→21:05)
[2018-02-19 22:44] LABS: BEDSIDE GLUCOSE 214 MG/DL (80-115)
[2018-02-20] MEDS: VANCOMYCIN HCL 1,000 MG, VIAL MATE ADAPTER 1 EACH in D5W 250 ML IV ×3 (00:49→20:24)
[2018-02-20] MEDS: MORPHINE 15 MG SA TAB PO ×2 (00:51→12:10)
[2018-02-20] MEDS: POLYSPORIN TOPICAL OINTMENT 15GM TOP ×6 (01:12→20:26)
[2018-02-20] MEDS: PREGABALIN 50 MG CAP (LYRICA) PO ×2 (04:20→15:19)
[2018-02-20] MEDS: AMPICILLIN SOD/SULBACTAM SOD 3 GM in D5W MINI-BAG PLUS 100 ML IV ×4 (04:20→21:58)
[2018-02-20 06:00] LABS: BASO % 0.3 % (0.0-1.0); EOS # 0.4 10^3/uL (0.0-0.50); EOS % 4.2 % (0.0-3.0); HEMATOCRIT 34.1 % (36.0-47.0); IMMATURE GRANULOCYTE % 0.4 % (0-3.0); LYMPH # 1.5 10^3/uL (1.5-4.5); LYMPH % 16.1 % (24.0-44.0); MEAN CORPUSCULAR HEMOGLOBIN 27.5 pg (27.0-33.0); MEAN CORPUSCULAR HGB CONC 32.3 g/dl (32.0-36.5); MEAN CORPUSCULAR VOLUME 85.3 fl (80.0-96.0); MONO # 0.7 10^3/uL (0.0-0.8); MONO % 7.7 % (0.0-5.0); NEUTROPHILS # 6.6 10^3/uL (1.8-7.7); NEUTROPHILS % 71.3 % (36.0-66.0); PLATELET COUNT, AUTOMATED 183 10^3/uL (150-450); RED CELL DISTRIBUTION WIDTH 15.7 % (11.5-14.5); WHITE BLOOD COUNT 9.3 10^3/uL (4.0-10.0)
[2018-02-20 06:19] LABS: ANION GAP 8 MEQ/L (8-16); BLOOD UREA NITROGEN 16 MG/DL (7-18); CALCIUM LEVEL 7.9 MG/DL (8.8-10.2); CARBON DIOXIDE LEVEL 30 MEQ/L (21-32); CHLORIDE LEVEL 101 MEQ/L (98-107); CREATININE FOR GFR 0.63 MG/DL (0.55-1.30); GLOMERULAR FILTRATION RATE > 60.0 (>45); GLUCOSE, FASTING 275 MG/DL (70-100); POTASSIUM SERUM 3.5 MEQ/L (3.5-5.1); SODIUM LEVEL 139 MEQ/L (136-145)
[2018-02-20] MEDS: LEVEMIR (INSULIN DETEMIR) 1 UNITS/0.01ML SC ×2 (07:30→16:57)
[2018-02-20] MEDS: ADVAIR HFA 115/21MCG INHALER INH ×2 (07:58→20:42)
[2018-02-20] MEDS: SENOKOT S TAB PO ×2 (09:00→20:25)
[2018-02-20] MEDS: ENOXAPARIN 40 MG/0.4 ML SYRINGE (J1650) SC (09:49)
[2018-02-20] MEDS: HumaLOG INSULIN (NovoLOG) PER UNIT SC ×4 (09:49→21:58)
[2018-02-20] MEDS: BACLOFEN 10 MG TAB PO ×2 (09:50→20:26)
[2018-02-20] MEDS: MORPHINE 4 MG/ML 1ML VIAL/SYRINGE (J2270) IV (09:50)
[2018-02-20] MEDS: ASPIRIN 81 MG CHEW TABLET PO (09:50)
[2018-02-20] MEDS: CLOPIDOGREL 75 MG TAB PO (09:50)
[2018-02-20] MEDS: DIVALPROEX 500 MG TAB PO ×2 (09:51→20:25)
[2018-02-20] MEDS: FAMOTIDINE 20 MG TAB PO (09:51)
[2018-02-20] MEDS: DULoxetine 30 MG CAP (CYMBALTA) PO (09:51)
[2018-02-20] MEDS: ARIPiprazole 10 MG TAB PO (09:51)
[2018-02-20] MEDS: THIAMINE 100 MG TAB PO ×2 (09:51→20:26)
[2018-02-20 12:31] LABS: VANCOMYCIN LEVEL TROUGH 9.1 UG/ML (10.0-20.0)
[2018-02-20 12:37] LABS: BEDSIDE GLUCOSE 212 MG/DL (80-115)
[2018-02-20] MEDS: FUROSEMIDE 20 MG TAB PO (13:31)
[2018-02-20 16:52] LABS: BEDSIDE GLUCOSE 243 MG/DL (80-115)
[2018-02-20 19:47] LABS: BEDSIDE GLUCOSE 263 MG/DL (80-115)
[2018-02-21] MEDS: MORPHINE 15 MG SA TAB PO ×3 (00:26→23:03)
[2018-02-21] MEDS: POLYSPORIN TOPICAL OINTMENT 15GM TOP ×6 (00:32→21:00)
[2018-02-21] MEDS: MORPHINE 4 MG/ML 1ML VIAL/SYRINGE (J2270) IV ×2 (02:15→13:59)
[2018-02-21] MEDS: AMPICILLIN SOD/SULBACTAM SOD 3 GM in D5W MINI-BAG PLUS 100 ML IV ×4 (04:27→23:03)
[2018-02-21] MEDS: PREGABALIN 50 MG CAP (LYRICA) PO ×2 (04:27→16:00)
[2018-02-21 06:01] LABS: BASO % 0.4 % (0.0-1.0); EOS # 0.4 10^3/uL (0.0-0.50); EOS % 3.9 % (0.0-3.0); HEMATOCRIT 34.1 % (36.0-47.0); IMMATURE GRANULOCYTE % 0.6 % (0-3.0); LYMPH % 20.4 % (24.0-44.0); MEAN CORPUSCULAR HEMOGLOBIN 27.5 pg (27.0-33.0); MEAN CORPUSCULAR HGB CONC 32.3 g/dl (32.0-36.5); MEAN CORPUSCULAR VOLUME 85.3 fl (80.0-96.0); MONO # 0.9 10^3/uL (0.0-0.8); MONO % 8.6 % (0.0-5.0); NEUTROPHILS # 6.6 10^3/uL (1.8-7.7); NEUTROPHILS % 66.1 % (36.0-66.0); PLATELET COUNT, AUTOMATED 195 10^3/uL (150-450); RED CELL DISTRIBUTION WIDTH 15.7 % (11.5-14.5); WHITE BLOOD COUNT 9.9 10^3/uL (4.0-10.0)
[2018-02-21 06:07] LABS: ANION GAP 9 MEQ/L (8-16); BLOOD UREA NITROGEN 13 MG/DL (7-18); CALCIUM LEVEL 8.2 MG/DL (8.8-10.2); CARBON DIOXIDE LEVEL 30 MEQ/L (21-32); CHLORIDE LEVEL 100 MEQ/L (98-107); CREATININE FOR GFR 0.58 MG/DL (0.55-1.30); GLOMERULAR FILTRATION RATE > 60.0 (>45); GLUCOSE, FASTING 258 MG/DL (70-100); POTASSIUM SERUM 3.8 MEQ/L (3.5-5.1); SODIUM LEVEL 139 MEQ/L (136-145)
[2018-02-21] MEDS: HumaLOG INSULIN (NovoLOG) PER UNIT SC ×4 (07:30→21:30)
[2018-02-21] MEDS: LEVEMIR (INSULIN DETEMIR) 1 UNITS/0.01ML SC ×4 (07:30→17:12)
[2018-02-21] MEDS: ADVAIR HFA 115/21MCG INHALER INH ×2 (07:45→20:39)
[2018-02-21] MEDS: DULoxetine 30 MG CAP (CYMBALTA) PO (09:00)
[2018-02-21] MEDS: SENOKOT S TAB PO ×2 (09:00→21:17)
[2018-02-21] MEDS: DIVALPROEX 500 MG TAB PO ×2 (09:00→21:18)
[2018-02-21] MEDS: CLOPIDOGREL 75 MG TAB PO (09:00)
[2018-02-21] MEDS: BACLOFEN 10 MG TAB PO ×2 (09:00→21:17)
[2018-02-21] MEDS: ENOXAPARIN 40 MG/0.4 ML SYRINGE (J1650) SC (09:00)
[2018-02-21] MEDS: VANCOMYCIN HCL 1,000 MG, VIAL MATE ADAPTER 1 EACH in D5W 250 ML IV ×2 (09:00→21:17)
[2018-02-21] MEDS: ASPIRIN 81 MG CHEW TABLET PO (09:00)
[2018-02-21] MEDS: ARIPiprazole 10 MG TAB PO (09:00)
[2018-02-21] MEDS: FAMOTIDINE 20 MG TAB PO (09:00)
[2018-02-21] MEDS: THIAMINE 100 MG TAB PO ×2 (09:00→21:17)
[2018-02-21] MEDS ORDERED: PROHANCE 279.3MG/ML 5ML VIAL (A9576) As Ordered (09:44)
[2018-02-21] MEDS ORDERED: PROHANCE 279.3MG/ML 15ML VIAL (A9576) As Ordered (09:45)
[2018-02-21] MEDS ORDERED: PROPOFOL 200 MG/20 ML VIAL As Ordered ×3 (10:12→18:16)
[2018-02-21] MEDS: LR 1,000 ML IV ×2 (12:15→18:45)
[2018-02-21 13:56] LABS: BEDSIDE GLUCOSE 250 MG/DL (80-115)
[2018-02-21] MEDS: FUROSEMIDE 20 MG TAB PO (13:59)
[2018-02-21 16:46] LABS: BEDSIDE GLUCOSE 279 MG/DL (80-115)
[2018-02-21] MEDS ORDERED: fentaNYL 100 MCG/2 ML INJECTION (J3010) As Ordered (17:01)
[2018-02-21] MEDS ORDERED: LIDOCAINE 2% INJ 100 MG/5 ML SDV (FOR ANES.) As Ordered (17:01)
[2018-02-21] MEDS: LIDOCAINE 1% SDV INJ 30 ML VIAL As Ordered (18:10)
[2018-02-21] MEDS ORDERED: ONDANSETRON 4MG/2ML VIAL (J2405) As Ordered (18:17)
[2018-02-21] MEDS ORDERED: METOCLOPRAMIDE INJ 10MG/2ML VIAL (J2765) As Ordered (18:17)
[2018-02-21] MEDS ORDERED: KETOROLAC 60 MG/2 ML VIAL (J1885) As Ordered (18:19)
[2018-02-21] MEDS ORDERED: fentaNYL 100 MCG/2 ML INJECTION (J3010) IV (18:45)
[2018-02-21] MEDS ORDERED: ONDANSETRON 4MG/2ML VIAL (J2405) IV (18:45)
[2018-02-21] MEDS: NS 1,000 ML IV (18:55)
[2018-02-21 21:23] LABS: BEDSIDE GLUCOSE 259 MG/DL (80-115)
[2018-02-22] MEDS: POLYSPORIN TOPICAL OINTMENT 15GM TOP ×2 (00:20→04:23)
[2018-02-22] MEDS: AMPICILLIN SOD/SULBACTAM SOD 3 GM in D5W MINI-BAG PLUS 100 ML IV ×4 (04:23→21:25)
[2018-02-22] MEDS: PREGABALIN 50 MG CAP (LYRICA) PO ×2 (04:23→15:56)
[2018-02-22] MEDS: MORPHINE 4 MG/ML 1ML VIAL/SYRINGE (J2270) IV ×2 (05:26→20:19)
[2018-02-22 06:39] LABS: BASO % 0.5 % (0.0-1.0); EOS # 0.3 10^3/uL (0.0-0.50); EOS % 3.7 % (0.0-3.0); HEMATOCRIT 32.8 % (36.0-47.0); HEMOGLOBIN 10.5 g/dl (12.0-15.5); IMMATURE GRANULOCYTE % 0.8 % (0-3.0); LYMPH # 2.4 10^3/uL (1.5-4.5); LYMPH % 28.1 % (24.0-44.0); MEAN CORPUSCULAR HEMOGLOBIN 27.4 pg (27.0-33.0); MEAN CORPUSCULAR VOLUME 85.6 fl (80.0-96.0); MONO # 0.7 10^3/uL (0.0-0.8); NEUTROPHILS # 5.1 10^3/uL (1.8-7.7); NEUTROPHILS % 58.9 % (36.0-66.0); PLATELET COUNT, AUTOMATED 189 10^3/uL (150-450); RED BLOOD COUNT 3.83 10^6/uL (4.00-5.40); RED CELL DISTRIBUTION WIDTH 15.8 % (11.5-14.5); WHITE BLOOD COUNT 8.6 10^3/uL (4.0-10.0)
[2018-02-22 07:00] LABS: ANION GAP 8 MEQ/L (8-16); BLOOD UREA NITROGEN 15 MG/DL (7-18); CALCIUM LEVEL 7.4 MG/DL (8.8-10.2); CARBON DIOXIDE LEVEL 30 MEQ/L (21-32); CHLORIDE LEVEL 101 MEQ/L (98-107); CREATININE FOR GFR 0.67 MG/DL (0.55-1.30); GLOMERULAR FILTRATION RATE > 60.0 (>45); GLUCOSE, FASTING 318 MG/DL (70-100); POTASSIUM SERUM 3.9 MEQ/L (3.5-5.1); SODIUM LEVEL 139 MEQ/L (136-145)
[2018-02-22] MEDS: LEVEMIR (INSULIN DETEMIR) 1 UNITS/0.01ML SC ×2 (07:53→21:23)
[2018-02-22] MEDS: HumaLOG INSULIN (NovoLOG) PER UNIT SC ×4 (07:54→21:00)
[2018-02-22 08:12] LABS: VANCOMYCIN LEVEL TROUGH 7.2 UG/ML (10.0-20.0)
[2018-02-22] MEDS: ADVAIR HFA 115/21MCG INHALER INH ×2 (09:13→21:25)
[2018-02-22] MEDS: VANCOMYCIN HCL 1,000 MG, VIAL MATE ADAPTER 1 EACH in D5W 250 ML IV ×2 (09:26→14:47)
[2018-02-22] MEDS: NYSTATIN 100,000 UNITS/GM TOPICAL PWD 15 GM TOP ×2 (10:16→21:25)
[2018-02-22] MEDS: ASPIRIN 81 MG CHEW TABLET PO (10:50)
[2018-02-22] MEDS: ENOXAPARIN 40 MG/0.4 ML SYRINGE (J1650) SC (10:52)
[2018-02-22] MEDS: DULoxetine 30 MG CAP (CYMBALTA) PO (10:53)
[2018-02-22] MEDS: DIVALPROEX 500 MG TAB PO ×2 (10:54→21:24)
[2018-02-22] MEDS: ARIPiprazole 10 MG TAB PO (10:54)
[2018-02-22] MEDS: THIAMINE 100 MG TAB PO ×2 (10:55→21:24)
[2018-02-22] MEDS: FAMOTIDINE 20 MG TAB PO (10:55)
[2018-02-22] MEDS: SENOKOT S TAB PO ×2 (10:56→21:24)
[2018-02-22] MEDS: BACLOFEN 10 MG TAB PO ×2 (10:56→21:24)
[2018-02-22] MEDS: CLOPIDOGREL 75 MG TAB PO (10:56)
[2018-02-22 11:40] LABS: BEDSIDE GLUCOSE 236 MG/DL (80-115)
[2018-02-22] MEDS: MORPHINE 15 MG SA TAB PO ×2 (11:48→21:24)
[2018-02-22] MEDS: ACETAMINOPHEN TAB 650MG DOSE (2X325MG) PO ×2 (13:35→20:10)
[2018-02-22] MEDS: FUROSEMIDE 20 MG TAB PO (13:36)
[2018-02-22 16:56] LABS: BEDSIDE GLUCOSE 223 MG/DL (80-115)
[2018-02-22 20:27] LABS: BEDSIDE GLUCOSE 172 MG/DL (80-115)
[2018-02-23] MEDS: VANCOMYCIN HCL 1,000 MG, VIAL MATE ADAPTER 1 EACH in D5W 250 ML IV ×2 (04:02→14:56)
[2018-02-23] MEDS: MORPHINE 4 MG/ML 1ML VIAL/SYRINGE (J2270) IV (04:02)
[2018-02-23] MEDS: PREGABALIN 50 MG CAP (LYRICA) PO ×2 (05:07→16:05)
[2018-02-23] MEDS: AMPICILLIN SOD/SULBACTAM SOD 3 GM in D5W MINI-BAG PLUS 100 ML IV ×4 (05:07→21:02)
[2018-02-23 06:29] LABS: BASO # 0.1 10^3/uL (0.0-0.2); BASO % 0.6 % (0.0-1.0); EOS # 0.5 10^3/uL (0.0-0.50); EOS % 5.1 % (0.0-3.0); HEMATOCRIT 33.2 % (36.0-47.0); HEMOGLOBIN 10.5 g/dl (12.0-15.5); IMMATURE GRANULOCYTE % 1.9 % (0-3.0); LYMPH # 3.1 10^3/uL (1.5-4.5); LYMPH % 33.3 % (24.0-44.0); MEAN CORPUSCULAR HEMOGLOBIN 27.2 pg (27.0-33.0); MEAN CORPUSCULAR HGB CONC 31.6 g/dl (32.0-36.5); MONO # 0.7 10^3/uL (0.0-0.8); MONO % 7.3 % (0.0-5.0); NEUTROPHILS # 4.9 10^3/uL (1.8-7.7); NEUTROPHILS % 51.8 % (36.0-66.0); PLATELET COUNT, AUTOMATED 227 10^3/uL (150-450); RED BLOOD COUNT 3.86 10^6/uL (4.00-5.40); RED CELL DISTRIBUTION WIDTH 15.9 % (11.5-14.5); WHITE BLOOD COUNT 9.4 10^3/uL (4.0-10.0)
[2018-02-23 06:48] LABS: ANION GAP 7 MEQ/L (8-16); BLOOD UREA NITROGEN 13 MG/DL (7-18); CALCIUM LEVEL 8.1 MG/DL (8.8-10.2); CARBON DIOXIDE LEVEL 31 MEQ/L (21-32); CHLORIDE LEVEL 101 MEQ/L (98-107); CREATININE FOR GFR 0.58 MG/DL (0.55-1.30); GLOMERULAR FILTRATION RATE > 60.0 (>45); GLUCOSE, FASTING 238 MG/DL (70-100); POTASSIUM SERUM 3.9 MEQ/L (3.5-5.1); SODIUM LEVEL 139 MEQ/L (136-145)
[2018-02-23] MEDS: FAMOTIDINE 20 MG TAB PO (08:41)
[2018-02-23] MEDS: THIAMINE 100 MG TAB PO ×2 (08:41→21:02)
[2018-02-23] MEDS: ASPIRIN 81 MG CHEW TABLET PO (08:41)
[2018-02-23] MEDS: DULoxetine 30 MG CAP (CYMBALTA) PO (08:41)
[2018-02-23] MEDS: MORPHINE 15 MG SA TAB PO ×2 (08:42→21:02)
[2018-02-23] MEDS: CLOPIDOGREL 75 MG TAB PO (08:42)
[2018-02-23] MEDS: ARIPiprazole 10 MG TAB PO (08:43)
[2018-02-23] MEDS: ENOXAPARIN 40 MG/0.4 ML SYRINGE (J1650) SC (08:43)
[2018-02-23] MEDS: BACLOFEN 10 MG TAB PO ×2 (08:43→21:02)
[2018-02-23] MEDS: DIVALPROEX 500 MG TAB PO ×2 (08:43→21:03)
[2018-02-23] MEDS: SENOKOT S TAB PO ×2 (08:43→21:02)
[2018-02-23] MEDS: HumaLOG INSULIN (NovoLOG) PER UNIT SC ×4 (08:44→20:31)
[2018-02-23] MEDS: LEVEMIR (INSULIN DETEMIR) 1 UNITS/0.01ML SC ×2 (08:46→21:01)
[2018-02-23] MEDS: NYSTATIN 100,000 UNITS/GM TOPICAL PWD 15 GM TOP ×2 (08:46→21:03)
[2018-02-23 11:45] LABS: BEDSIDE GLUCOSE 151 MG/DL (80-115)
[2018-02-23] MEDS: ADVAIR HFA 115/21MCG INHALER INH ×2 (12:04→22:46)
[2018-02-23] MEDS: ACETAMINOPHEN TAB 650MG DOSE (2X325MG) PO (13:06)
[2018-02-23] MEDS: FUROSEMIDE 20 MG TAB PO (13:14)
[2018-02-23 14:38] LABS: VANCOMYCIN LEVEL TROUGH 10.1 UG/ML (10.0-20.0)
[2018-02-23 16:30] LABS: BEDSIDE GLUCOSE 188 MG/DL (80-115)
[2018-02-23 20:05] LABS: BEDSIDE GLUCOSE 100 MG/DL (80-115)
[2018-02-24] MEDS: VANCOMYCIN HCL 1,000 MG, VIAL MATE ADAPTER 1 EACH in D5W 250 ML IV ×2 (03:03→15:15)
[2018-02-24] MEDS: PREGABALIN 50 MG CAP (LYRICA) PO ×2 (04:51→15:14)
[2018-02-24] MEDS: AMPICILLIN SOD/SULBACTAM SOD 3 GM in D5W MINI-BAG PLUS 100 ML IV ×4 (04:51→22:05)
[2018-02-24 07:50] LABS: BASO # 0.1 10^3/uL (0.0-0.2); BASO % 0.8 % (0.0-1.0); EOS # 0.4 10^3/uL (0.0-0.50); EOS % 4.6 % (0.0-3.0); HEMATOCRIT 34.5 % (36.0-47.0); IMMATURE GRANULOCYTE % 3.7 % (0-3.0); LYMPH # 2.9 10^3/uL (1.5-4.5); LYMPH % 29.7 % (24.0-44.0); MEAN CORPUSCULAR HEMOGLOBIN 27.2 pg (27.0-33.0); MEAN CORPUSCULAR HGB CONC 31.9 g/dl (32.0-36.5); MEAN CORPUSCULAR VOLUME 85.4 fl (80.0-96.0); MONO # 0.7 10^3/uL (0.0-0.8); MONO % 7.5 % (0.0-5.0); NEUTROPHILS # 5.2 10^3/uL (1.8-7.7); NEUTROPHILS % 53.7 % (36.0-66.0); PLATELET COUNT, AUTOMATED 265 10^3/uL (150-450); RED BLOOD COUNT 4.04 10^6/uL (4.00-5.40); RED CELL DISTRIBUTION WIDTH 15.8 % (11.5-14.5); WHITE BLOOD COUNT 9.7 10^3/uL (4.0-10.0)
[2018-02-24 08:01] LABS: ALBUMIN 2.2 GM/DL (3.2-5.2); ALBUMIN/GLOBULIN RATIO 0.54 (1.00-1.93); ALKALINE PHOSPHATASE 119 U/L (45-117); ALT/SGPT 23 U/L (12-78); ANION GAP 4 MEQ/L (8-16); AST/SGOT 16 U/L (7-37); BILIRUBIN,TOTAL 0.3 MG/DL (0.2-1.0); BLOOD UREA NITROGEN 12 MG/DL (7-18); C REACTIVE PROTEIN QUANTITATIV 3.97 MG/DL (0.00-0.30); CALCIUM LEVEL 7.8 MG/DL (8.8-10.2); CARBON DIOXIDE LEVEL 33 MEQ/L (21-32); CHLORIDE LEVEL 104 MEQ/L (98-107); CREATININE FOR GFR 0.48 MG/DL (0.55-1.30); GLOMERULAR FILTRATION RATE > 60.0 (>45); GLUCOSE, FASTING 117 MG/DL (70-100); POTASSIUM SERUM 3.9 MEQ/L (3.5-5.1); SODIUM LEVEL 141 MEQ/L (136-145); TOTAL PROTEIN 6.3 GM/DL (6.4-8.2)
[2018-02-24] MEDS: ADVAIR HFA 115/21MCG INHALER INH ×2 (09:02→21:22)
[2018-02-24] MEDS: LEVEMIR (INSULIN DETEMIR) 1 UNITS/0.01ML SC ×2 (09:50→21:04)
[2018-02-24] MEDS: HumaLOG INSULIN (NovoLOG) PER UNIT SC ×4 (09:50→21:00)
[2018-02-24] MEDS: DULoxetine 30 MG CAP (CYMBALTA) PO (09:51)
[2018-02-24] MEDS: DIVALPROEX 500 MG TAB PO ×2 (09:51→21:02)
[2018-02-24] MEDS: FAMOTIDINE 20 MG TAB PO (09:51)
[2018-02-24] MEDS: ASPIRIN 81 MG CHEW TABLET PO (09:51)
[2018-02-24] MEDS: CLOPIDOGREL 75 MG TAB PO (09:52)
[2018-02-24] MEDS: ARIPiprazole 10 MG TAB PO (09:52)
[2018-02-24] MEDS: THIAMINE 100 MG TAB PO ×2 (09:52→21:02)
[2018-02-24] MEDS: BACLOFEN 10 MG TAB PO ×2 (09:52→21:02)
[2018-02-24] MEDS: SENOKOT S TAB PO ×2 (09:52→21:02)
[2018-02-24] MEDS: MORPHINE 15 MG SA TAB PO ×2 (09:52→21:03)
[2018-02-24] MEDS: NYSTATIN 100,000 UNITS/GM TOPICAL PWD 15 GM TOP ×2 (09:53→21:04)
[2018-02-24] MEDS: ENOXAPARIN 40 MG/0.4 ML SYRINGE (J1650) SC (09:53)
[2018-02-24 11:33] LABS: BEDSIDE GLUCOSE 182 MG/DL (80-115)
[2018-02-24] MEDS: FUROSEMIDE 20 MG TAB PO (15:14)
[2018-02-24 16:49] LABS: BEDSIDE GLUCOSE 193 MG/DL (80-115)
[2018-02-24 20:47] LABS: BEDSIDE GLUCOSE 173 MG/DL (80-115)
[2018-02-25] MEDS: VANCOMYCIN HCL 1,000 MG, VIAL MATE ADAPTER 1 EACH in D5W 250 ML IV ×3 (02:13→15:43)
[2018-02-25] MEDS: AMPICILLIN SOD/SULBACTAM SOD 3 GM in D5W MINI-BAG PLUS 100 ML IV ×3 (03:37→16:48)
[2018-02-25] MEDS: PREGABALIN 50 MG CAP (LYRICA) PO ×2 (04:52→15:42)
[2018-02-25 06:27] LABS: BEDSIDE GLUCOSE 133 MG/DL (80-115)
[2018-02-25] MEDS: ADVAIR HFA 115/21MCG INHALER INH ×2 (07:24→21:00)
[2018-02-25] MEDS: HumaLOG INSULIN (NovoLOG) PER UNIT SC ×4 (08:16→21:00)
[2018-02-25] MEDS: LEVEMIR (INSULIN DETEMIR) 1 UNITS/0.01ML SC ×2 (08:16→21:37)
[2018-02-25] MEDS: DIVALPROEX 500 MG TAB PO ×3 (08:17→21:37)
[2018-02-25] MEDS: FAMOTIDINE 20 MG TAB PO (08:17)
[2018-02-25] MEDS: ASPIRIN 81 MG CHEW TABLET PO (08:17)
[2018-02-25] MEDS: ENOXAPARIN 40 MG/0.4 ML SYRINGE (J1650) SC (08:17)
[2018-02-25] MEDS: SENOKOT S TAB PO ×2 (08:18→21:00)
[2018-02-25] MEDS: THIAMINE 100 MG TAB PO ×2 (08:18→21:37)
[2018-02-25] MEDS: DULoxetine 30 MG CAP (CYMBALTA) PO (08:18)
[2018-02-25] MEDS: ARIPiprazole 10 MG TAB PO (08:19)
[2018-02-25] MEDS: BACLOFEN 10 MG TAB PO ×2 (08:19→21:38)
[2018-02-25] MEDS: MORPHINE 15 MG SA TAB PO ×2 (08:19→21:38)
[2018-02-25] MEDS: CLOPIDOGREL 75 MG TAB PO (08:19)
[2018-02-25] MEDS: NYSTATIN 100,000 UNITS/GM TOPICAL PWD 15 GM TOP ×2 (09:00→21:39)
[2018-02-25 12:17] LABS: BEDSIDE GLUCOSE 109 MG/DL (80-115)
[2018-02-25] MEDS: FUROSEMIDE 20 MG TAB PO (15:42)
[2018-02-25 16:55] LABS: BEDSIDE GLUCOSE 186 MG/DL (80-115)
[2018-02-25 19:52] LABS: BEDSIDE GLUCOSE 175 MG/DL (80-115)
[2018-02-25] MEDS: CEPHALEXIN 500 MG CAP PO (21:37)
[2018-02-26] MEDS: PREGABALIN 50 MG CAP (LYRICA) PO (05:25)
[2018-02-26] MEDS: CEPHALEXIN 500 MG CAP PO (05:25)
[2018-02-26 05:58] LABS: BEDSIDE GLUCOSE 95 MG/DL (80-115)
[2018-02-26] MEDS: ADVAIR HFA 115/21MCG INHALER INH (07:20)
[2018-02-26] MEDS: HumaLOG INSULIN (NovoLOG) PER UNIT SC ×2 (07:30→12:00)
[2018-02-26] MEDS: LEVEMIR (INSULIN DETEMIR) 1 UNITS/0.01ML SC (08:30)
[2018-02-26] MEDS: ENOXAPARIN 40 MG/0.4 ML SYRINGE (J1650) SC (08:31)
[2018-02-26] MEDS: CLOPIDOGREL 75 MG TAB PO (08:41)
[2018-02-26] MEDS: FAMOTIDINE 20 MG TAB PO (08:43)
[2018-02-26] MEDS: BACLOFEN 10 MG TAB PO (08:44)
[2018-02-26] MEDS: MORPHINE 15 MG SA TAB PO (08:44)
[2018-02-26] MEDS: DIVALPROEX 500 MG TAB PO ×2 (08:46→09:00)
[2018-02-26] MEDS: THIAMINE 100 MG TAB PO (08:47)
[2018-02-26] MEDS: ASPIRIN 81 MG CHEW TABLET PO (09:00)
[2018-02-26] MEDS: ARIPiprazole 10 MG TAB PO (09:00)
[2018-02-26] MEDS ORDERED: PILL CRUSHER/CUTTER 1 EACH XX (09:00)
[2018-02-26] MEDS: NYSTATIN 100,000 UNITS/GM TOPICAL PWD 15 GM TOP (09:00)
[2018-02-26] MEDS: SENOKOT S TAB PO (09:00)
[2018-02-26] MEDS: DULoxetine 30 MG CAP (CYMBALTA) PO (09:00)
[2018-02-26 12:01] LABS: BEDSIDE GLUCOSE 124 MG/DL (80-115)
== END 2018-02-26 12:05 | DRG 720 ==
LOC: M MS5PR 02-20 19:19 → M ED 11:16 → M ED INP 17:29 → M MSPAV 20:35
PROC: 0J9H0ZX Drainage of Left Lower Arm Subcutaneous Tissue and Fascia, Open Approach, Diagnostic (ICD-10-PCS; principal; 2018-02-21 16:30)
DX: A41.9 Sepsis, unspecified organism (principal); E11.40 Type 2 diabetes mellitus with diabetic neuropathy, unspecified; F03.90 Unspecified dementia, unspecified severity, without behavioral disturbance, psychotic disturbance, mood disturbance, and anxiety; I69.951 Hemiplegia and hemiparesis following unspecified cerebrovascular disease affecting right dominant side; J44.9 Chronic obstructive pulmonary disease, unspecified; L97.929 Non-pressure chronic ulcer of unspecified part of left lower leg with unspecified severity; I69.322 Dysarthria following cerebral infarction; L03.113 Cellulitis of right upper limb; F31.9 Bipolar disorder, unspecified; G40.909 Epilepsy, unspecified, not intractable, without status epilepticus; I10 Essential (primary) hypertension; E78.5 Hyperlipidemia, unspecified; R91.8 Other nonspecific abnormal finding of lung field; Z79.899 Other long term (current) drug therapy; Z79.4 Long term (current) use of insulin; Z88.8 Allergy status to other drugs, medicaments and biological substances; R65.20 Severe sepsis without septic shock

== ENCOUNTER → 2018-03-15 | Outpatient (REF) | payer MEDICAID, MEDICARE ==
[2018-03-15 13:45] LABS: BASO # 0.1 10^3/uL (0.0-0.2); BASO % 0.7 % (0.0-1.0); EOS # 0.3 10^3/uL (0.0-0.50); EOS % 3.8 % (0.0-3.0); HEMOGLOBIN 12.1 g/dl (12.0-15.5); IMMATURE GRANULOCYTE % 0.3 % (0-3.0); LYMPH # 2.3 10^3/uL (1.5-4.5); LYMPH % 30.9 % (24.0-44.0); MEAN CORPUSCULAR HEMOGLOBIN 27.3 pg (27.0-33.0); MONO # 0.6 10^3/uL (0.0-0.8); MONO % 8.7 % (0.0-5.0); NEUTROPHILS # 4.1 10^3/uL (1.8-7.7); NEUTROPHILS % 55.6 % (36.0-66.0); PLATELET COUNT, AUTOMATED 164 10^3/uL (150-450); RED BLOOD COUNT 4.43 10^6/uL (4.00-5.40); RED CELL DISTRIBUTION WIDTH 15.9 % (11.5-14.5); WHITE BLOOD COUNT 7.4 10^3/uL (4.0-10.0)
[2018-03-15 14:00] LABS: INR 0.91; PROTHROMBIN TIME 12.3 SECONDS (12.1-14.4)
[2018-03-15 14:01] LABS: PARTIAL THROMBOPLASTIN TIME 31.9 SECONDS (25.4-37.6)
[2018-03-15 14:06] LABS: C REACTIVE PROTEIN QUANTITATIV 0.73 MG/DL (0.00-0.30)
[2018-03-15 14:25] LABS: ERYTHROCYTE SEDIMENTATION RATE 39 mm/hr (0-30)
== END ==
LOC: SKLAB5 12:55
DX: R22.40 Localized swelling, mass and lump, unspecified lower limb (principal)
CPT/HCPCS: 86140

== ENCOUNTER → 2018-03-15 | Outpatient (CLI) | payer MEDICAID, MEDICARE | LOC: M RAD 14:19 | DX: R93.9 Diagnostic imaging inconclusive due to excess body fat of patient (principal) | CPT/HCPCS: 93971 ==

== ENCOUNTER → 2018-04-02 | Outpatient (CLI) | payer MEDICARE, MEDICAID | LOC: M RAD 11:51 | DX: Z12.31 Encounter for screening mammogram for malignant neoplasm of breast (principal) | CPT/HCPCS: 77067 ==

== ENCOUNTER → 2018-04-14 | Outpatient (REF) | payer MEDICARE, MEDICAID ==
[2018-04-14 08:16] LABS: ANION GAP 8 MEQ/L (8-16); BLOOD UREA NITROGEN 14 MG/DL (7-18); CALCIUM LEVEL 8.5 MG/DL (8.8-10.2); CARBON DIOXIDE LEVEL 30 MEQ/L (21-32); CHLORIDE LEVEL 99 MEQ/L (98-107); CREATININE FOR GFR 0.71 MG/DL (0.55-1.30); GLOMERULAR FILTRATION RATE > 60.0 (>45); GLUCOSE, FASTING 211 MG/DL (70-100); POTASSIUM SERUM 4.7 MEQ/L (3.5-5.1); SODIUM LEVEL 137 MEQ/L (136-145)
== END ==
LOC: SKLAB5 08:00
DX: E11.9 Type 2 diabetes mellitus without complications (principal); E78.5 Hyperlipidemia, unspecified; R60.9 Edema, unspecified
CPT/HCPCS: 36415

== ENCOUNTER → 2018-07-08 | Outpatient (REF) | payer MEDICARE, MEDICAID ==
[2018-07-08 12:55] LABS: ESTIMATED AVERAGE GLUCOSE 171 MG/DL (60-110); HEMOGLOBIN A1c 7.6 %
== END ==
LOC: SKLAB5 07:25
DX: E11.9 Type 2 diabetes mellitus without complications (principal)
CPT/HCPCS: 83036

== ENCOUNTER → 2018-07-14 | Outpatient (REF) | payer MEDICARE, MEDICAID | LOC: SKLAB5 08:26 | DX: R07.89 Other chest pain (principal) | CPT/HCPCS: 71046 ==

== ENCOUNTER → 2018-07-14 | Outpatient (REF) | payer MEDICARE, MEDICAID ==
[2018-07-14 15:17] LABS: HEMOGLOBIN 11.2 g/dl (12.0-15.5); MEAN CORPUSCULAR HEMOGLOBIN 26.5 pg (27.0-33.0); MEAN CORPUSCULAR HGB CONC 31.1 g/dl (32.0-36.5); MEAN CORPUSCULAR VOLUME 85.1 fl (80.0-96.0); PLATELET COUNT, AUTOMATED 265 10^3/uL (150-450); RED BLOOD COUNT 4.23 10^6/uL (4.00-5.40); RED CELL DISTRIBUTION WIDTH 15.9 % (11.5-14.5); WHITE BLOOD COUNT 10.6 10^3/uL (4.0-10.0)
[2018-07-14 15:45] LABS: TROPONIN I < 0.02 NG/ML (< 0.10)
[2018-07-14 15:45] LABS: NT-PRO BNP 199 PG/ML (<125)
== END ==
LOC: SKLAB5 14:21
DX: R00.0 Tachycardia, unspecified (principal)
CPT/HCPCS: 71046; 93005

== ENCOUNTER → 2018-07-19 | Outpatient (REF) | payer MEDICARE, MEDICAID | LOC: SKLAB5 08:24 | DX: R07.89 Other chest pain (principal) | CPT/HCPCS: 93005 ==

== ENCOUNTER 2018-07-20 14:56 | Emergency (ER) | payer MEDICARE, MEDICAID | END 2018-07-20 15:38 | disposition home or self-care (01) | LOC: M ED 14:56 | DX: R04.0 Epistaxis (principal); I10 Essential (primary) hypertension; E11.9 Type 2 diabetes mellitus without complications; Z95.1 Presence of aortocoronary bypass graft; R56.9 Unspecified convulsions; G62.9 Polyneuropathy, unspecified; R07.9 Chest pain, unspecified; I25.2 Old myocardial infarction; E78.00 Pure hypercholesterolemia, unspecified; Z86.718 Personal history of other venous thrombosis and embolism; J45.909 Unspecified asthma, uncomplicated; J44.9 Chronic obstructive pulmonary disease, unspecified; K21.9 Gastro-esophageal reflux disease without esophagitis; M51.36 Other intervertebral disc degeneration, lumbar region; M51.26 Other intervertebral disc displacement, lumbar region; F31.9 Bipolar disorder, unspecified; F41.9 Anxiety disorder, unspecified; Z88.1 Allergy status to other antibiotic agents; Z79.899 Other long term (current) drug therapy; Z79.01 Long term (current) use of anticoagulants; Z79.4 Long term (current) use of insulin; Z79.84 Long term (current) use of oral hypoglycemic drugs; Z79.891 Long term (current) use of opiate analgesic; Z79.02 Long term (current) use of antithrombotics/antiplatelets; Z79.82 Long term (current) use of aspirin | CPT/HCPCS: 30901 ==

== ENCOUNTER → 2018-08-26 | Outpatient (REF) | payer MEDICARE, MEDICAID ==
[~2018-08-26] MED LIST changes: +ADV250INH INH; +AFRI0.056; +ASPI81CH32 PO; +BENCRE3 TOP; +BLISOIN5 TOP; +CEPA1LOZ5 MT; +CEPH500C PO; +DIVA500T94 PO; +DULC10SU2 PR; +GLUC1KIT IM; +INSUDET SC; +INSUHUMDS SC; +LASI20TA PO; +METF500T13 PO; +METF500T4 PO; +MILK12002 PO; +MORP-38 PO; +PLAV1TAB2 PO; +POLYOIN2 TOP; +PREG50CA PO; +TUMS500C PO; +VITA100T8 PO; +ZOFR4TAB16 PO; +[UNRECOGNIZED DRUG - OTHER]
[2018-08-26 09:06] LABS: CHOLESTEROL RISK RATIO 3.19 (<5)
[2018-08-26 11:33] LABS: HEMOGLOBIN A1c 8.3 %
== END ==
LOC: SKLAB5 08:00
PROVIDERS: ATTEND Family Medicine
DX: E78.5 Hyperlipidemia, unspecified (principal); R56.9 Unspecified convulsions; E11.9 Type 2 diabetes mellitus without complications

== ENCOUNTER → 2018-10-18 | Outpatient (REF) | payer MEDICARE, MEDICAID ==
[~2018-10-18] MED LIST changes: -BENCRE3 TOP; +BENG1CRE3 TOP; -LASI20TA PO; +LASI20TA3 PO; +MILK120011 PO; -MILK12002 PO
[2018-10-18 12:46] LABS: HEMATOCRIT 31.6 % (36.0-47.0); HEMOGLOBIN 9.6 g/dl (12.0-15.5); MEAN CORPUSCULAR HEMOGLOBIN 24.9 pg (27.0-33.0); MEAN CORPUSCULAR HGB CONC 30.4 g/dl (32.0-36.5); MEAN CORPUSCULAR VOLUME 82.1 fl (80.0-96.0); PLATELET COUNT, AUTOMATED 427 10^3/uL (150-450); RED BLOOD COUNT 3.85 10^6/uL (4.00-5.40); WHITE BLOOD COUNT 10.8 10^3/uL (4.0-10.0)
[2018-10-18 13:16] LABS: BLOOD UREA NITROGEN 19 MG/DL (7-18); CALCIUM LEVEL 8.3 MG/DL (8.8-10.2); CARBON DIOXIDE LEVEL 29 MEQ/L (21-32); CHLORIDE LEVEL 99 MEQ/L (98-107); CREATININE FOR GFR 0.71 MG/DL (0.55-1.30); GLOMERULAR FILTRATION RATE > 60.0 (>45); GLUCOSE, FASTING 151 MG/DL (70-100); POTASSIUM SERUM 4.5 MEQ/L (3.5-5.1); SODIUM LEVEL 134 MEQ/L (136-145)
[2018-10-18 13:59] LABS: APPEARANCE, URINE CLEAR (CLEAR); BACTERIA, URINE AUTO NEGATIVE (NEGATIVE); BILIRUBIN, URINE AUTO NEGATIVE (NEGATIVE); BLOOD, URINE BLOOD NEGATIVE (NEGATIVE); COLOR, URINE YELLOW (YELLOW); GLUCOSE, URINE (UA) AUTO NEGATIVE (NEGATIVE); KETONE, URINE AUTO NEGATIVE (NEGATIVE); LEUKOCYTE ESTERASE, URINE AUTO NEGATIVE (NEGATIVE); NITRITE, URINE AUTO NEGATIVE (NEGATIVE); PROTEIN, URINE AUTO NEGATIVE (NEGATIVE); RBC, URINE AUTO 1 /HPF (0-3); SPECIFIC GRAVITY URINE AUTO 1.013 (1.002-1.035); SQUAMOUS EPITHELIAL CELL UR AU 1 /HPF (0-6); WBC, URINE AUTO 2 /HPF (0-3)
--- NOTE | 2018-10-18 14:43 | REP ---
Clinical: Right mid abdominal pain. Technique: Supine and upright views of the abdomen and pelvis. Comparison: Chest x-ray dated 07/14/2018. Findings: Lung olivares demonstrate diffuse chronic interstitial changes. Superimposed bibasilar infiltrates (right greater than left) cannot be excluded. Bowel gas pattern is nonspecific. No obstruction or perforation identified. Skeletal structures demonstrate osteopenia and degenerative changes along with chronic levoconvex scoliosis. Impression: Cannot exclude [id number] bilateral lower lobe infiltrates. Nonspecific bowel gas pattern. Electronically Signed by John Bernardo MD 10/18/2018 02:35 P
== END ==
LOC: SKLAB5 11:58
PROVIDERS: ATTEND Family Medicine
DX: R10.9 Unspecified abdominal pain (principal)

== ENCOUNTER → 2018-10-19 | Outpatient (REF) | payer MEDICARE, MEDICAID ==
--- NOTE | 2018-10-19 09:24 | REP ---
Clinical: Pneumonia. Technique: PA and lateral. Comparison: 07/14/2018. Findings: Mediastinum and cardiac silhouette are stable. Moderate right lower lobe infiltrate is suggested along with possible bibasilar atelectasis. No effusion. No pneumothorax. Skeletal structures demonstrate age-related degenerative changes and osteopenia. Impression: Right lower lobe infiltrate suggested along with bibasilar atelectasis. Electronically Signed by John Bernardo MD 10/19/2018 09:15 A
== END ==
LOC: SKLAB5 07:39
PROVIDERS: ATTEND Family Medicine
DX: J18.9 Pneumonia, unspecified organism (principal)

== ENCOUNTER → 2018-11-25 | Outpatient (REF) | payer MEDICARE, MEDICAID ==
[~2018-11-25] MED LIST changes: -/ADVA50050; -/ADVA50050 IN; -/ADVA50050 INH; -/DULO30CA PO; -/ESOM40CA OR; -/INSUREG; -/INSUREG SC; -/MOM400 PO; -/RANI15TA PO; -/TIOT18INH; -/TIOT18INH INH; -ACET50TA PO; +ADVA1AER2; +ADVA1AER2 IN; +ADVA1AER2 INH; +CYMB1CAP5 PO; -ENOX40SY SC; +LOVE1INJ SC; +MAPA500T17 PO; +MILK10SU PO; +NEXI1CAP3 OR; +NOVO1INJ2; +NOVO1INJ2 SC; +OXYC1TAB23 PO; -PERCOCET PO; +RANI1TAB17 PO; +SPIR1CAP; +SPIR1CAP INH
== END ==
LOC: SKLAB5 07:58
PROVIDERS: ATTEND Family Medicine
DX: E11.9 Type 2 diabetes mellitus without complications (principal)

== ENCOUNTER → 2018-11-26 | Outpatient (REF) | payer MEDICARE, MEDICAID ==
[2018-11-26 07:41] LABS: FERRITIN 31 NG/ML (8-252); IRON (FE) 18 UG/DL (50-170); PERCENT SATURATION 4.1 % (13.2-45.0); TOTAL IRON BINDING CAPACITY 444 UG/DL (250-450)
[2018-11-26 09:28] LABS: HEMATOCRIT 40.6 % (36.0-47.0); HEMOGLOBIN 12.2 g/dl (12.0-15.5); MEAN CORPUSCULAR HEMOGLOBIN 24.4 pg (27.0-33.0); MEAN CORPUSCULAR VOLUME 81.4 fl (80.0-96.0); PLATELET COUNT, AUTOMATED 283 10^3/uL (150-450); RED BLOOD COUNT 4.99 10^6/uL (4.00-5.40); WHITE BLOOD COUNT 17.7 10^3/uL (4.0-10.0)
[2018-11-26 09:31] LABS: ALBUMIN 3.4 GM/DL (3.2-5.2); ALT/SGPT 13 U/L (12-78); BILIRUBIN,TOTAL 0.4 MG/DL (0.2-1.0); BLOOD UREA NITROGEN 20 MG/DL (7-18); CARBON DIOXIDE LEVEL 26 MEQ/L (21-32); CHLORIDE LEVEL 102 MEQ/L (98-107); CREATININE FOR GFR 0.94 MG/DL (0.55-1.30); GLOMERULAR FILTRATION RATE > 60.0 (>45); GLUCOSE, FASTING 158 MG/DL (70-100); POTASSIUM SERUM 3.3 MEQ/L (3.5-5.1); SODIUM LEVEL 139 MEQ/L (136-145); TOTAL PROTEIN 8.9 GM/DL (6.4-8.2)
--- NOTE | 2018-11-26 11:29 | REP ---
ACUTE ABDOMINAL SERIES: Three views. HISTORY: Constipation. Distension. COMPARISON STUDY: October 19, 2018 and October 18, 2018. FINDINGS: Upright chest radiograph shows a new somewhat nodular infiltrate in the left lung field. Question pneumonia. Right lung is essentially clear. There is no evidence of free subdiaphragmatic air. Heart is not enlarged. Supine and erect views of the abdomen show a pin in the left hip and levoconvex scoliotic curve. The bowel gas pattern is normal. Vascular calcification is seen without evidence of aneurysm. No evidence of free intraperitoneal air or significant air fluid level. No large or small bowel dilation is seen. IMPRESSION: Normal bowel gas pattern. Increased density consistent with infiltrate left lower lung field. Electronically Signed by Dhaval Reyes MD 11/26/2018 01:36 P
== END ==
LOC: SKLAB5 12:20
PROVIDERS: ATTEND Family Medicine
DX: D64.9 Anemia, unspecified (principal); K59.00 Constipation, unspecified; Z79.899 Other long term (current) drug therapy; R10.9 Unspecified abdominal pain; Z13.29 Encounter for screening for other suspected endocrine disorder

== ENCOUNTER → 2018-11-27 | Outpatient (REF) | payer MEDICARE, MEDICAID ==
[~2018-11-27] MED LIST changes: -ASPI81CH32 PO; +ASPI81CH33 PO; -CEPA1LOZ5 MT; +CEPALOZ8 MT
== END ==
LOC: M LAB 08:13
PROVIDERS: ATTEND Family Medicine
DX: D64.9 Anemia, unspecified (principal); Z79.82 Long term (current) use of aspirin; Z79.899 Other long term (current) drug therapy

== ENCOUNTER → 2018-12-02 | Outpatient (REF) | payer MEDICARE, MEDICAID ==
[2018-12-02 08:42] LABS: BLOOD UREA NITROGEN 14 MG/DL (7-18); CALCIUM LEVEL 9.5 MG/DL (8.8-10.2); CARBON DIOXIDE LEVEL 30 MEQ/L (21-32); CHLORIDE LEVEL 99 MEQ/L (98-107); CREATININE FOR GFR 0.66 MG/DL (0.55-1.30); GLOMERULAR FILTRATION RATE > 60.0 (>45); GLUCOSE, FASTING 140 MG/DL (70-100); POTASSIUM SERUM 4.6 MEQ/L (3.5-5.1); SODIUM LEVEL 136 MEQ/L (136-145)
== END ==
LOC: SKLAB5 08:05
PROVIDERS: ATTEND Family Medicine
DX: E87.6 Hypokalemia (principal)

== ENCOUNTER → 2019-01-27 | Outpatient (REF) | payer MEDICARE, MEDICAID ==
[2019-01-27 07:24] LABS: BASO # 0.1 10^3/uL (0.0-0.2); BASO % 0.7 % (0.0-1.0); EOS # 0.2 10^3/uL (0.0-0.50); EOS % 2.4 % (0.0-3.0); HEMOGLOBIN 11.6 g/dl (12.0-15.5); LYMPH # 3.1 10^3/uL (1.5-4.5); LYMPH % 35.3 % (24.0-44.0); MEAN CORPUSCULAR HEMOGLOBIN 25.7 pg (27.0-33.0); MEAN CORPUSCULAR HGB CONC 30.5 g/dl (32.0-36.5); MEAN CORPUSCULAR VOLUME 84.3 fl (80.0-96.0); MONO # 0.6 10^3/uL (0.0-0.8); MONO % 6.5 % (0.0-5.0); NEUTROPHILS # 4.8 10^3/uL (1.8-7.7); NEUTROPHILS % 54.4 % (36.0-66.0); PLATELET COUNT, AUTOMATED 307 10^3/uL (150-450); RED BLOOD COUNT 4.51 10^6/uL (4.00-5.40); WHITE BLOOD COUNT 8.8 10^3/uL (4.0-10.0)
== END ==
LOC: SKLAB5 09:05
PROVIDERS: ATTEND Family Medicine
DX: D64.9 Anemia, unspecified (principal)

== ENCOUNTER → 2019-02-25 | Outpatient (REF) | payer MEDICARE, MEDICAID ==
[2019-02-25 08:21] LABS: CHOLESTEROL RISK RATIO 3.225 (<5); HEMOGLOBIN A1c 9.9 %
== END ==
LOC: SKLAB5 12:03
PROVIDERS: ATTEND Family Medicine
DX: E11.9 Type 2 diabetes mellitus without complications (principal)

== ENCOUNTER → 2019-03-21 | Outpatient (REF) | payer MEDICARE, MEDICAID ==
[~2019-03-21] MED LIST changes: -MORP-38 PO; +MORP-69 PO
--- NOTE | 2019-03-21 14:52 | REP ---
Clinical: Dyspnea. Comparison: 10/19/2018. Findings: Evaluation is limited by portable technique and underpenetration which accentuate the pulmonary vasculature. Interstitial edema as well as scattered left suprahilar and right basilar atelectasis cannot be excluded. No obvious effusion. No pneumothorax. Skeletal structures stable. Impression: Limited examination. Cannot exclude the suprahilar or right basilar atelectasis as well as possible interstitial edema. Electronically Signed by John Bernardo MD 03/21/2019 02:43 P
== END ==
LOC: SKLAB5 08:56
PROVIDERS: ATTEND Family Medicine
DX: R06.00 Dyspnea, unspecified (principal)

== ENCOUNTER → 2019-04-28 | Outpatient (REF) | payer MEDICARE, MEDICAID ==
[~2019-04-28] MED LIST changes: +METF-791 PO; -METF500T4 PO
[2019-04-28 08:21] LABS: BASO # 0.1 10^3/uL (0.0-0.2); BASO % 0.6 % (0.0-1.0); EOS # 0.2 10^3/uL (0.0-0.5); EOS % 2.4 % (0.0-3.0); HEMATOCRIT 40.6 % (36.0-47.0); HEMOGLOBIN 12.7 g/dl (12.0-15.5); LYMPH # 2.9 10^3/uL (1.5-5.0); LYMPH % 33.6 % (24.0-44.0); MEAN CORPUSCULAR HGB CONC 31.3 g/dl (32.0-36.5); MEAN CORPUSCULAR VOLUME 86.2 fl (80.0-96.0); MONO # 0.6 10^3/uL (0.0-0.8); MONO % 6.9 % (0.0-5.0); NEUTROPHILS # 4.8 10^3/uL (1.5-8.5); NEUTROPHILS % 55.7 % (36.0-66.0); PLATELET COUNT, AUTOMATED 248 10^3/uL (150-450); RED BLOOD COUNT 4.71 10^6/uL (4.00-5.40); WHITE BLOOD COUNT 8.6 10^3/uL (4.0-10.0)
== END ==
LOC: SKLAB5 10:21
PROVIDERS: ATTEND Family Medicine
DX: D64.9 Anemia, unspecified (principal)

== ENCOUNTER → 2019-05-26 | Outpatient (REF) | payer MEDICARE, MEDICAID ==
[2019-05-26 08:30] LABS: BASO # 0.1 10^3/uL (0.0-0.2); BASO % 0.7 % (0.0-1.0); EOS # 0.3 10^3/uL (0.0-0.5); EOS % 2.7 % (0.0-3.0); HEMATOCRIT 40.4 % (36.0-47.0); HEMOGLOBIN 12.4 g/dl (12.0-15.5); LYMPH # 4.1 10^3/uL (1.5-5.0); LYMPH % 38.7 % (24.0-44.0); MEAN CORPUSCULAR HEMOGLOBIN 26.8 pg (27.0-33.0); MEAN CORPUSCULAR HGB CONC 30.7 g/dl (32.0-36.5); MEAN CORPUSCULAR VOLUME 87.4 fl (80.0-96.0); MONO # 0.7 10^3/uL (0.0-0.8); MONO % 6.7 % (0.0-5.0); NEUTROPHILS # 5.3 10^3/uL (1.5-8.5); NEUTROPHILS % 50.5 % (36.0-66.0); PLATELET COUNT, AUTOMATED 229 10^3/uL (150-450); RED BLOOD COUNT 4.62 10^6/uL (4.00-5.40); WHITE BLOOD COUNT 10.5 10^3/uL (4.0-10.0)
[2019-05-26 11:32] LABS: MAU/CREAT RATIO 92.5 MCG/MG (0.0-30.0)
== END ==
LOC: SKLAB5 08:22
PROVIDERS: ATTEND Family Medicine
DX: D64.9 Anemia, unspecified (principal); E11.9 Type 2 diabetes mellitus without complications

== ENCOUNTER → 2019-06-09 | Outpatient (REF) | payer MEDICARE, MEDICAID ==
[2019-06-09 09:03] LABS: BLOOD UREA NITROGEN 25 MG/DL (7-18); CALCIUM LEVEL 9.4 MG/DL (8.8-10.2); CARBON DIOXIDE LEVEL 29 MEQ/L (21-32); CHLORIDE LEVEL 98 MEQ/L (98-107); GLOMERULAR FILTRATION RATE > 60.0 (>45); GLUCOSE, FASTING 261 MG/DL (70-100); POTASSIUM SERUM 4.7 MEQ/L (3.5-5.1); SODIUM LEVEL 134 MEQ/L (136-145)
== END ==
LOC: SKLAB5 07:38
PROVIDERS: ATTEND Family Medicine
DX: I10 Essential (primary) hypertension (principal); E11.9 Type 2 diabetes mellitus without complications

== ENCOUNTER → 2019-06-30 | Outpatient (REF) | payer MEDICARE, MEDICAID ==
[2019-06-30 09:09] LABS: BASO # 0.1 10^3/uL (0.0-0.2); BASO % 0.8 % (0.0-1.0); EOS # 0.3 10^3/uL (0.0-0.5); EOS % 3.2 % (0.0-3.0); HEMATOCRIT 41.1 % (36.0-47.0); HEMOGLOBIN 12.2 g/dl (12.0-15.5); LYMPH # 3.5 10^3/uL (1.5-5.0); LYMPH % 37.5 % (24.0-44.0); MEAN CORPUSCULAR HEMOGLOBIN 26.4 pg (27.0-33.0); MEAN CORPUSCULAR HGB CONC 29.7 g/dl (32.0-36.5); MONO # 0.6 10^3/uL (0.0-0.8); NEUTROPHILS # 4.8 10^3/uL (1.5-8.5); NEUTROPHILS % 51.7 % (36.0-66.0); PLATELET COUNT, AUTOMATED 280 10^3/uL (150-450); RED BLOOD COUNT 4.62 10^6/uL (4.00-5.40); WHITE BLOOD COUNT 9.3 10^3/uL (4.0-10.0)
== END ==
LOC: SKLAB5 07:35
PROVIDERS: ATTEND Family Medicine
DX: D64.9 Anemia, unspecified (principal)

== ENCOUNTER → 2019-07-28 | Outpatient (REF) | payer MEDICARE, MEDICAID ==
[2019-07-28 08:34] LABS: BASO # 0.1 10^3/uL (0.0-0.2); BASO % 0.6 % (0.0-1.0); EOS # 0.3 10^3/uL (0.0-0.5); EOS % 2.6 % (0.0-3.0); HEMATOCRIT 39.4 % (36.0-47.0); HEMOGLOBIN 11.8 g/dl (12.0-15.5); LYMPH # 3.5 10^3/uL (1.5-5.0); MEAN CORPUSCULAR HEMOGLOBIN 26.5 pg (27.0-33.0); MEAN CORPUSCULAR HGB CONC 29.9 g/dl (32.0-36.5); MEAN CORPUSCULAR VOLUME 88.3 fl (80.0-96.0); MONO # 0.8 10^3/uL (0.0-0.8); MONO % 7.6 % (0.0-5.0); NEUTROPHILS # 6.1 10^3/uL (1.5-8.5); NEUTROPHILS % 56.3 % (36.0-66.0); PLATELET COUNT, AUTOMATED 288 10^3/uL (150-450); RED BLOOD COUNT 4.46 10^6/uL (4.00-5.40); WHITE BLOOD COUNT 10.8 10^3/uL (4.0-10.0)
== END ==
LOC: SKLAB5 09:55
PROVIDERS: ATTEND Family Medicine
DX: D64.9 Anemia, unspecified (principal)

== ENCOUNTER → 2019-08-03 | Outpatient (REF) | payer MEDICARE, MEDICAID ==
--- NOTE | 2019-08-03 16:47 | REP ---
Single view chest: 08/03/2019. Indication: Dyspnea. Comparison: 03/21/2019. Findings: Air space consolidation and interstitial thickening are present within the right lung base. There is no pleural effusion or pneumothorax. The cardiomediastinal silhouette is unremarkable. Impression: Right lower lobe pneumonia. Electronically Signed by Jonathon Berg DO 08/03/2019 04:39 P
[2019-08-03 18:08] LABS: HEMATOCRIT 38.6 % (36.0-47.0); HEMOGLOBIN 11.8 g/dl (12.0-15.5); MEAN CORPUSCULAR HEMOGLOBIN 26.3 pg (27.0-33.0); MEAN CORPUSCULAR HGB CONC 30.6 g/dl (32.0-36.5); MEAN CORPUSCULAR VOLUME 86.2 fl (80.0-96.0); PLATELET COUNT, AUTOMATED 290 10^3/uL (150-450); RED BLOOD COUNT 4.48 10^6/uL (4.00-5.40); WHITE BLOOD COUNT 11.4 10^3/uL (4.0-10.0)
[2019-08-03 18:48] LABS: BLOOD UREA NITROGEN 34 MG/DL (7-18); CARBON DIOXIDE LEVEL 30 MEQ/L (21-32); CHLORIDE LEVEL 100 MEQ/L (98-107); CREATININE FOR GFR 0.81 MG/DL (0.55-1.30); GLOMERULAR FILTRATION RATE > 60.0 (>45); GLUCOSE, FASTING 85 MG/DL (70-100); POTASSIUM SERUM 4.1 MEQ/L (3.5-5.1); SODIUM LEVEL 136 MEQ/L (136-145)
[2019-08-03 18:49] LABS: CALCIUM LEVEL 10.1 MG/DL (8.8-10.2); TROPONIN I < 0.02 NG/ML (< 0.10)
--- NOTE | 2019-08-03 21:36 | ECGEPIP ---
[facility] Test Date: 2019-08-03 Pat Name: JOLENE ROSALES Department: Room: - Gender: Female Writing Tutor: : 1955 Requested By: ADRIANA MACIAS [facility] Order Number: [id number] Reading MD: Casimiro Sandra Measurements Intervals [place] Rate: 97 P: 61 LA: 156 QRS: 25 QRSD: 90 T: -14 QT: 347 QTc: 442 Interpretive Statements SINUS RHYTHM POSSIBLE OLD INFERIOR MYOCARDIAL INFARCT Poor R-wave progression No significant change compared with 07/19/2018 Electronically Signed on 08-03-2019 21:35:38 EST by Casimiro Sandra
== END ==
LOC: SKLAB5 14:44
PROVIDERS: ATTEND Family Medicine
DX: J18.1 Lobar pneumonia, unspecified organism (principal); R06.00 Dyspnea, unspecified

== ENCOUNTER → 2019-08-25 | Outpatient (REF) | payer MEDICARE, MEDICAID ==
[2019-08-25 09:55] LABS: HEMOGLOBIN A1c 7.9 %
[2019-08-25 10:07] LABS: CHOLESTEROL RISK RATIO 3.23 (<5); VALPROIC ACID (DEPAKOTE) 76.7 UG/ML (50.0-100.0)
== END ==
LOC: SKLAB5 07:37
PROVIDERS: ATTEND Family Medicine
DX: R56.9 Unspecified convulsions (principal); E78.5 Hyperlipidemia, unspecified; E11.9 Type 2 diabetes mellitus without complications

== ENCOUNTER → 2019-09-29 | Outpatient (REF) | payer MEDICARE, MEDICAID ==
[2019-09-29 08:25] LABS: BASO # 0.1 10^3/uL (0.0-0.2); BASO % 0.4 % (0.0-1.0); EOS # 0.3 10^3/uL (0.0-0.5); EOS % 2.6 % (0.0-3.0); HEMATOCRIT 35.2 % (36.0-47.0); HEMOGLOBIN 10.5 g/dl (12.0-15.5); LYMPH # 3.1 10^3/uL (1.5-5.0); MEAN CORPUSCULAR HEMOGLOBIN 25.9 pg (27.0-33.0); MEAN CORPUSCULAR HGB CONC 29.8 g/dl (32.0-36.5); MEAN CORPUSCULAR VOLUME 86.7 fl (80.0-96.0); MONO # 0.8 10^3/uL (0.0-0.8); MONO % 6.6 % (0.0-5.0); NEUTROPHILS # 7.2 10^3/uL (1.5-8.5); NEUTROPHILS % 62.8 % (36.0-66.0); PLATELET COUNT, AUTOMATED 392 10^3/uL (150-450); RED BLOOD COUNT 4.06 10^6/uL (4.00-5.40); WHITE BLOOD COUNT 11.4 10^3/uL (4.0-10.0)
== END ==
LOC: SKLAB5 09:02
PROVIDERS: ATTEND Family Medicine
DX: D64.9 Anemia, unspecified (principal)

== ENCOUNTER → 2019-10-16 | Outpatient (REF) | payer MEDICARE, MEDICAID | LOC: SKLAB5 08:20 | PROVIDERS: ATTEND Family Medicine | DX: R11.2 Nausea with vomiting, unspecified (principal); R19.7 Diarrhea, unspecified ==

== ENCOUNTER → 2019-10-26 | Outpatient (REF) | payer MEDICARE, MEDICAID ==
[2019-10-26 11:44] LABS: HEMATOCRIT 33.2 % (36.0-47.0); HEMOGLOBIN 10.2 g/dl (12.0-15.5); MEAN CORPUSCULAR HEMOGLOBIN 25.7 pg (27.0-33.0); MEAN CORPUSCULAR HGB CONC 30.7 g/dl (32.0-36.5); MEAN CORPUSCULAR VOLUME 83.6 fl (80.0-96.0); PLATELET COUNT, AUTOMATED 366 10^3/uL (150-450); RED BLOOD COUNT 3.97 10^6/uL (4.00-5.40); WHITE BLOOD COUNT 11.6 10^3/uL (4.0-10.0)
[2019-10-26 12:08] LABS: INFLUENZA A AMPLIFICATION NEGATIVE (NEGATIVE); INFLUENZA B AMPLIFICATION NEGATIVE (NEGATIVE)
[2019-10-26 12:31] LABS: ALBUMIN 2.8 GM/DL (3.2-5.2); ALT/SGPT 14 U/L (12-78); BILIRUBIN,TOTAL 0.3 MG/DL (0.2-1.0); BLOOD UREA NITROGEN 20 MG/DL (7-18); CALCIUM LEVEL 9.5 MG/DL (8.8-10.2); CARBON DIOXIDE LEVEL 28 MEQ/L (21-32); CHLORIDE LEVEL 101 MEQ/L (98-107); CREATININE FOR GFR 0.64 MG/DL (0.55-1.30); GLOMERULAR FILTRATION RATE > 60.0 (>45); GLUCOSE, FASTING 115 MG/DL (70-100); LIPASE 43 U/L (73-393); POTASSIUM SERUM 4.2 MEQ/L (3.5-5.1); SODIUM LEVEL 136 MEQ/L (136-145)
--- NOTE | 2019-10-26 12:48 | REP ---
ABDOMINAL SERIES: Supine and erect views of the abdomen demonstrate no evidence of free intraperitoneal air and no evidence of small bowel obstruction. No significantly dilated small bowel loops are seen. Scattered vascular calcifications are noted. There are mild degenerative changes of the spine with curvature towards the left. Metallic internal fixation is seen in the proximal left femur. An accompanying view of the chest demonstrates chronic interstitial fibrosis in the lung bases. The heart is upper limits of normal in size to slightly enlarged. There appears to be increased soft tissue in the left aortopulmonic window and in the right inferior paratracheal region. I cannot exclude underlying adenopathy. IMPRESSION: No free air or obstruction. Increased convex soft tissue density in the mediastinum. This suggests mediastinal adenopathy. Recommend CT of the chest with IV contrast. Electronically Signed by Juwan Vaz MD 10/26/2019 04:09 P
[2019-10-26 16:03] LABS: APPEARANCE, URINE CLEAR (CLEAR); BACTERIA, URINE AUTO NEGATIVE (NEGATIVE); BILIRUBIN, URINE AUTO NEGATIVE (NEGATIVE); BLOOD, URINE BLOOD NEGATIVE (NEGATIVE); COLOR, URINE YELLOW (YELLOW); GLUCOSE, URINE (UA) AUTO NEGATIVE (NEGATIVE); KETONE, URINE AUTO NEGATIVE (NEGATIVE); LEUKOCYTE ESTERASE, URINE AUTO NEGATIVE (NEGATIVE); NITRITE, URINE AUTO NEGATIVE (NEGATIVE); PROTEIN, URINE AUTO NEGATIVE (NEGATIVE); RBC, URINE AUTO 3 /HPF (0-3); SPECIFIC GRAVITY URINE AUTO 1.011 (1.002-1.035); SQUAMOUS EPITHELIAL CELL UR AU 1 /HPF (0-6); UROBILINOGEN, URINE AUTO 0.2 mg/dL (0.0-2.0); WBC, URINE AUTO 6 /HPF (0-3)
== END ==
LOC: SKLAB5 10:43
PROVIDERS: ATTEND Family Medicine
DX: R11.0 Nausea (principal); R19.7 Diarrhea, unspecified; R10.9 Unspecified abdominal pain

== ENCOUNTER → 2019-10-27 | Outpatient (REF) | payer MEDICARE, MEDICAID | LOC: SKLAB5 07:44 | PROVIDERS: ATTEND Family Medicine | DX: D64.9 Anemia, unspecified (principal) ==

== ENCOUNTER → 2019-11-22 | Outpatient (CLI) | payer MEDICARE, MEDICAID ==
[~2019-11-22] MED LIST changes: +ACET1TAB55 PO; +AFRI0.058; +ARIP1TAB PO; +BENA25CA4 PO; +DEPA1TAB3 PO; +DULO1CAP6 PO; +FAMO20TA PO; +FERR32TA PO; +HM S0.65; +HM S0.65 NARES; +HYOS125TA PO; +LISI-542 PO; +LORA0.5T5 PO; +MOM30SS PO; +MORP20SO3 PO; +NOVOINJ SC; +POTA10TA16 PO; +PREG25CA2 PO; +ROBILIQ22 PO; +SIMV40TA20 PO; +THIA100T7 PO; +TOPI100T9 PO; +[UNRECOGNIZED DRUG - CODE]
== END ==
LOC: M ONCR 16:52
PROVIDERS: ATTEND Radiology Radiation Oncology
DX: Z53.9 Procedure and treatment not carried out, unspecified reason (principal)

== ENCOUNTER → 2019-11-22 | Outpatient (RCR) | payer MEDICARE, MEDICAID ==
[~2019-11-22] MED LIST changes: -HYOS125TA PO; -LORA0.5T5 PO; -MORP20SO3 PO
--- NOTE | 2019-11-23 08:34 | RADONC ---
RADIATION ONCOLOGY SIMULATION NOTE DATE: 11/22/2019 CHART NUMBER: [id number] SIMULATION NOTE: Ms. Mosley was taken to the CT simulator today for simulation of her mediastinal field. Simulation was accomplished without difficulty or discomfort. Radiation treatment planning is underway and radiation treatments will begin today. An immobilization device was created without difficulty or discomfort. I was physically present throughout this course of simulation. Great care was taken with COVID-19 precautions. We are planning on delivering three fractions of 300 cGy each to the mediastinum. The patient does not at this point have pathology unavailable. Biopsy is scheduled for tomorrow. Once we obtain pathology further recommendations can be made. Clearly if the patient is a candidate for systemic therapy that would be the preferred choice. I am stopping at 900 cGy since there is an exorbitant amount of normal lung in this massive field. Further re-evaluation will be undertaken after completion of these three fractions. I did speak with the patient's daughter at length and she is deciding whether or not to put this patient on comfort care. She has agreed to two or three fractions of radiation to obtain some stability while the decisions are made. The patient has multiple comorbidities.
--- NOTE | 2019-11-23 09:29 | RADONC ---
RADIATION ONCOLOGY CONSULTATION NOTE DATE OF SERVICE: 11/22/2019 CHART NUMBER: [id number] DIAGNOSIS: Mediastinal mass. ECOG PERFORMANCE STATUS: 4. CONSULTATION NOTE: We were contacted by the hospitalist service as well as the emergency room department by Dr. Casimiro Amado, as well as Dr. Celestin and Dr. Zena Phillips for consultation regarding possibilities of emergent external beam RT to an massive mediastinal mass causing SVC syndrome. HISTORY OF PRESENT ILLNESS: The patient is a long-term nursing care facility patient who recently developed sudden shortness of breath with facial swelling and was seen in our emergency department today. A CT scan was done on 11/22/1927, which revealed bulky mediastinal adenopathy in the right paratracheal region, the precarinal region, the subcarinal region and the aorticopulmonary window. The right paratracheal adenopathy measured 8.6 cm x 6.5 cm x 7 cm. The subcarinal lymph node measured 3.5 cm x 4.3 cm. There was also left axillary lymphadenopathy and a mass in the left right lower lobe measuring 2.8 cm. In addition, there appeared to be celiac axis lymph nodes which were enlarged. This was consistent with widely metastatic disease and SVC syndrome. The superior vena cava was substantially compressed. The patient was tested for COVID-19 virus as well. PAST MEDICAL HISTORY: The patient has an exceedingly lengthy past medical history with numerous complaints. Past medical history includes anxiety disorder, atrial fibrillation, bipolar disorder, blindness, chronic back pain, chronic diarrhea, chronic left hip pain, chronic peripheral venous insufficiency, COPD, cough with hemoptysis, right hemiparesis secondary to CVA, type 2 diabetes with diabetic neuropathy, GERD, ETOH abuse, otitis media, hypertension, iron deficiency anemia, lower extremity edema, cellulitis, pneumonia, pulmonary fibrosis, sciatica. In addition, the patient had bilateral hip replacements and cardiac catheterization on 05/29/2008 at age 53, closed endoscopic biopsy of large intestine in 2005 at age of 51, some type of drainage of the right lower arm in 2018, she had a wrist abscess in 2018 as well. ALLERGIES: The patient is allergic to CIPRO and QUINOLONES. FAMILY HISTORY: Generally unremarkable. REVIEW OF SYSTEMS: The patient is lying in bed in the ICU. She is not communicative. She does say she is hungry. PHYSICAL EXAMINATION: Physical examination was limited secondary to COVID-19 precautions. The patient is presenting on a stretcher from the ICU. She has on a surgical mask. She appears comfortable, laying down. ASSESSMENT I did have a discussion with this patient's daughter with regards to our present treatment plan, as well as with the referring hospitalist doctors. I believe it reasonable at this time to treat her mediastinal mass. 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 I am planning on delivering a dose of 300 cGy today, as well as an additional 300 cGy tomorrow and perhaps a third one if necessary. The patient is scheduled for a biopsy to be done tomorrow and pathology in this case is critical. Clearly, if this is a lymphoma or small cell lung carcinoma, systemic therapy would be the treatment option of choice. More than that, it would really be the only treatment available. She has poor pulmonary function and one can clearly see the lung disease on her CT scan. Her present olivares includes vast majority of both her lungs which cannot tolerate exceeding lung tolerance levels. If this is not a disease that can be treated systemically then and the only option would be palliative care after these three fractions. Indeed, this is appears to be widely metastatic and the goal of this would purely be to palliate and buy some time. The patient's daughter has explained that she is coming in and the family will decide on palliative care. The goal therefore of today's treatment and perhaps tomorrow's is to allow some time and stability to make a decision on which way to go with this patient. I have discussed this case in length with Dr. Yuan as well. Clearly, this patient has had multiple issues and this will be a difficult and personal decision for the family. We are here to support them at least for the three fractions that are safely able to be delivered. cc: Zena Phillips MD, PGY-2 MD Denia Coto MD [place], MD
== END ==
LOC: M ONCR 16:54
PROVIDERS: ATTEND Radiology Radiation Oncology
DX: C34.31 Malignant neoplasm of lower lobe, right bronchus or lung (principal)

== ENCOUNTER → 2019-11-22 | Outpatient (REF) | payer MEDICARE, MEDICAID | LOC: SKLAB5 07:23 | PROVIDERS: ATTEND Family Medicine | DX: R53.83 Other fatigue (principal); R09.89 Other specified symptoms and signs involving the circulatory and respiratory systems; Z53.9 Procedure and treatment not carried out, unspecified reason ==

== ENCOUNTER 2019-11-23 15:40 | Outpatient (RCR) | payer MEDICARE, MEDICAID ==
[2019-11-28] MEDS ORDERED: MORP20SO3 PO ×2 (11:31→12:00)
[2019-11-28] MEDS ORDERED: HYOS125TA PO ×2 (11:31→12:00)
[2019-11-28] MEDS ORDERED: LORA0.5T5 PO ×2 (11:31→12:00)
== END 2019-12-22 ==
LOC: M ONCR 15:40
PROVIDERS: ATTEND Radiology Radiation Oncology
DX: C34.31 Malignant neoplasm of lower lobe, right bronchus or lung (principal)

== ENCOUNTER → 2019-11-24 | Outpatient (REF) | payer MEDICARE, MEDICAID ==
[2019-11-24 07:21] LABS: BASO % 0.2 % (0.0-1.0); HEMATOCRIT 30.6 % (36.0-47.0); HEMOGLOBIN 9.1 g/dl (12.0-15.5); LYMPH # 0.8 10^3/uL (1.5-5.0); LYMPH % 6.5 % (24.0-44.0); MEAN CORPUSCULAR HEMOGLOBIN 25.1 pg (27.0-33.0); MEAN CORPUSCULAR HGB CONC 29.7 g/dl (32.0-36.5); MEAN CORPUSCULAR VOLUME 84.3 fl (80.0-96.0); MONO # 0.5 10^3/uL (0.0-0.8); NEUTROPHILS # 11.3 10^3/uL (1.5-8.5); NEUTROPHILS % 88.8 % (36.0-66.0); PLATELET COUNT, AUTOMATED 352 10^3/uL (150-450); RED BLOOD COUNT 3.63 10^6/uL (4.00-5.40); WHITE BLOOD COUNT 12.7 10^3/uL (4.0-10.0)
== END ==
LOC: SKLAB5 08:10
PROVIDERS: ATTEND Family Medicine
DX: E11.9 Type 2 diabetes mellitus without complications (principal); D64.9 Anemia, unspecified